=== PATIENT | male | born 1960 | race Two or more races ===

== ENCOUNTER 2020-10-02 15:40 | Outpatient (REF) | payer MEDICARE, SELFPAY | END 2020-10-02 15:41 | disposition home or self-care (01) | LOC: HO.LAB 15:40 | PROVIDERS: Visit Provider Internal Medicine | DX: Z20.822 Contact with and (suspected) exposure to COVID-19 (principal) | CPT/HCPCS: 36415; C9803; U0003; U0005 ==

== ENCOUNTER 2020-10-13 08:52 | Outpatient (REF) | payer MEDICARE, SELFPAY ==
[2020-10-13 11:57] LABS: SARS COV2 PCR INHOUSE NEGATIVE (Negative)
== END 2020-10-13 08:53 | disposition home or self-care (01) ==
LOC: HO.LAB 08:52
PROVIDERS: Visit Provider Internal Medicine
DX: Z20.822 Contact with and (suspected) exposure to COVID-19 (principal)
CPT/HCPCS: C9803; U0003

== ENCOUNTER 2020-10-26 09:15 | Outpatient (REF) | payer MEDICARE, SELFPAY ==
--- NOTE | ~2020-10-26 | XR_ITS ---
EXAMINATION: XR HAND, RIGHT XR HAND, LEFT CLINICAL INFORMATION: Right and left hand pain. COMPARISON: Left hand radiographs dated 04/01/2020. Right hand radiographs dated 07/06/2011. TECHNIQUE: AP, oblique, and lateral views of the right and left hand. FINDINGS: Right hand: No acute fracture or dislocation. Joint space narrowing with marginal osteophytes at the 3rd metacarpophalangeal joint. Tiny marginal osteophytes scattered throughout the distal interphalangeal joints. No osseous erosion. No abnormal soft tissue calcification. Left hand: No acute fracture or dislocation. Mild joint space narrowing with tiny marginal osteophytes at the 3rd and 5th metacarpophalangeal joints. Tiny marginal osteophytes at the distal interphalangeal joints. Redemonstration of a focal erosion at the radial base of the 5th proximal phalanx, slightly more prominent when compared to the prior examination. There is a new focal erosion at the ulnar aspect of the 3rd middle phalangeal head. No abnormal soft tissue calcification. XR/XR hand RT min 3V IMPRESSION: Right hand: Degenerative arthritis at the 3rd metacarpophalangeal joint as well as scattered throughout the distal interphalangeal joints, new when compared to the prior radiographs. Left hand: Mild degenerative arthritis at the 3rd and 5th metacarpophalangeal joints as well as at the distal interphalangeal joints, not significantly changed. Increased prominence of a small erosion at the base of the 5th proximal phalanx. New focal erosion at the 3rd middle phalangeal head.
--- NOTE | ~2020-10-26 | XR_ITS ---
EXAMINATION: XR KNEE, RIGHT XR KNEE, LEFT CLINICAL INFORMATION: Right and left knee pain. COMPARISON: Right and left knee radiographs dated 09/14/2016. TECHNIQUE: AP, tunnel, lateral, and sunrise views of the right and left knee. FINDINGS: Right Knee: Mild medial compartment joint space narrowing. Tiny tricompartmental marginal osteophytes. No osseous erosion. No fracture or dislocation. No abnormal soft tissue calcification. Small joint effusion. Left Knee: Mild medial compartment joint space narrowing. Tiny tricompartmental marginal osteophytes. No osseous erosion. No fracture or dislocation. No abnormal soft tissue calcification. Trace joint effusion. XR/XR knee LT 4V IMPRESSION: RIGHT KNEE: Mild tricompartmental osteoarthritis, minimally progressed when compared to the prior examination. Small joint effusion. LEFT KNEE: Mild tricompartmental osteoarthritis, minimally progressed when compared to the prior examination. Trace joint effusion.
--- NOTE | ~2020-10-26 | XR_ITS ---
EXAMINATION: XR HAND, RIGHT XR HAND, LEFT CLINICAL INFORMATION: Right and left hand pain. COMPARISON: Left hand radiographs dated 04/01/2020. Right hand radiographs dated 07/06/2011. TECHNIQUE: AP, oblique, and lateral views of the right and left hand. FINDINGS: Right hand: No acute fracture or dislocation. Joint space narrowing with marginal osteophytes at the 3rd metacarpophalangeal joint. Tiny marginal osteophytes scattered throughout the distal interphalangeal joints. No osseous erosion. No abnormal soft tissue calcification. Left hand: No acute fracture or dislocation. Mild joint space narrowing with tiny marginal osteophytes at the 3rd and 5th metacarpophalangeal joints. Tiny marginal osteophytes at the distal interphalangeal joints. Redemonstration of a focal erosion at the radial base of the 5th proximal phalanx, slightly more prominent when compared to the prior examination. There is a new focal erosion at the ulnar aspect of the 3rd middle phalangeal head. No abnormal soft tissue calcification. XR/XR hand LT min 3V IMPRESSION: Right hand: Degenerative arthritis at the 3rd metacarpophalangeal joint as well as scattered throughout the distal interphalangeal joints, new when compared to the prior radiographs. Left hand: Mild degenerative arthritis at the 3rd and 5th metacarpophalangeal joints as well as at the distal interphalangeal joints, not significantly changed. Increased prominence of a small erosion at the base of the 5th proximal phalanx. New focal erosion at the 3rd middle phalangeal head.
--- NOTE | ~2020-10-26 | XR_ITS ---
EXAMINATION: XR KNEE, RIGHT XR KNEE, LEFT CLINICAL INFORMATION: Right and left knee pain. COMPARISON: Right and left knee radiographs dated 09/14/2016. TECHNIQUE: AP, tunnel, lateral, and sunrise views of the right and left knee. FINDINGS: Right Knee: Mild medial compartment joint space narrowing. Tiny tricompartmental marginal osteophytes. No osseous erosion. No fracture or dislocation. No abnormal soft tissue calcification. Small joint effusion. Left Knee: Mild medial compartment joint space narrowing. Tiny tricompartmental marginal osteophytes. No osseous erosion. No fracture or dislocation. No abnormal soft tissue calcification. Trace joint effusion. XR/XR knee RT 4V IMPRESSION: RIGHT KNEE: Mild tricompartmental osteoarthritis, minimally progressed when compared to the prior examination. Small joint effusion. LEFT KNEE: Mild tricompartmental osteoarthritis, minimally progressed when compared to the prior examination. Trace joint effusion.
== END 2020-10-26 09:16 | disposition home or self-care (01) ==
LOC: HO.XRAY 09:15
PROVIDERS: PCP Nurse Practitioner Primary Care; Visit Provider Nurse Practitioner Primary Care
DX: M25.561 Pain in right knee (principal); M25.562 Pain in left knee; M79.641 Pain in right hand; M79.642 Pain in left hand
CPT/HCPCS: 73130; 73564

== ENCOUNTER 2021-03-09 07:01 | Outpatient (REF) | payer MEDICARE, SELFPAY ==
[2021-03-09 08:31] LABS: PSA,Total (Free>4and<10) 10.03 ng/mL (0.00-4.00)
== END 2021-03-09 07:02 | disposition home or self-care (01) ==
LOC: HO.LAB 07:01
PROVIDERS: PCP Nurse Practitioner Primary Care
DX: Z12.5 Encounter for screening for malignant neoplasm of prostate (principal); N40.1 Benign prostatic hyperplasia with lower urinary tract symptoms
CPT/HCPCS: 36415; 84153

== ENCOUNTER 2021-03-10 10:59 | Outpatient (REF) | payer MEDICARE, SELFPAY | END 2021-03-10 11:00 | disposition home or self-care (01) | LOC: HO.LAB 10:59 | PROVIDERS: PCP Nurse Practitioner Primary Care; Visit Provider Internal Medicine | DX: M54.9 Dorsalgia, unspecified (principal); R78.81 Bacteremia; R97.20 Elevated prostate specific antigen [PSA] | CPT/HCPCS: 87040; 99202 ==

== ENCOUNTER → 2021-03-18 13:23 | Outpatient (BNVA) | payer MEDICARE, SELFPAY | PROVIDERS: PCP Nurse Practitioner Primary Care; Visit Provider Urology | DX: N40.1 Benign prostatic hyperplasia with lower urinary tract symptoms (principal); R97.20 Elevated prostate specific antigen [PSA] | CPT/HCPCS: 99212 ==

== ENCOUNTER 2021-05-10 11:36 | Outpatient (REF) | payer MEDICARE, SELFPAY ==
[2021-05-10 13:37] LABS: PSA,Total (Free>4and<10) 3.48 ng/mL (0.00-4.00)
== END 2021-05-10 11:37 | disposition home or self-care (01) ==
LOC: HO.LAB 11:36
PROVIDERS: PCP Nurse Practitioner Primary Care; Visit Provider Urology
DX: Z12.5 Encounter for screening for malignant neoplasm of prostate (principal); N40.1 Benign prostatic hyperplasia with lower urinary tract symptoms
CPT/HCPCS: 36415; 84153

== ENCOUNTER → 2021-05-20 09:51 | Outpatient (BNVA) | payer MEDICARE, SELFPAY | PROVIDERS: PCP Nurse Practitioner Primary Care; Visit Provider Urology | CPT/HCPCS: Q3014 ==

== ENCOUNTER 2021-09-14 08:20 | Outpatient (REF) | payer MEDICARE, SELFPAY ==
[2021-09-14 09:40] LABS: PSA,Total (Free>4and<10) 3.85 ng/mL (0.00-4.00)
== END 2021-09-14 08:21 | disposition home or self-care (01) ==
LOC: HO.LAB 08:20
PROVIDERS: PCP Nurse Practitioner Primary Care; Visit Provider Urology
DX: N40.1 Benign prostatic hyperplasia with lower urinary tract symptoms (principal); N13.8 Other obstructive and reflux uropathy; Z12.5 Encounter for screening for malignant neoplasm of prostate
CPT/HCPCS: 36415; 84153

== ENCOUNTER → 2021-09-16 10:39 | Outpatient (BNVA) | payer MEDICARE, SELFPAY | PROVIDERS: PCP Nurse Practitioner Primary Care; Visit Provider Urology | DX: N40.1 Benign prostatic hyperplasia with lower urinary tract symptoms (principal); N13.8 Other obstructive and reflux uropathy; R33.9 Retention of urine, unspecified; R97.20 Elevated prostate specific antigen [PSA] | CPT/HCPCS: Q3014 ==

== ENCOUNTER 2021-12-21 09:43 | Outpatient (REF) | payer MEDICARE, SELFPAY ==
[2021-12-21 11:51] LABS: Appearance Urine CLEAR; Color Urine YELLOW; Glucose Urine UA NEG (NEG); Leukocyte Esterase Urine NEG (NEG); Nitrite Urine NEG (NEG); PH 7.5 (5.0-8.0); Specific Gravity - Urine 1.015 (1.005-1.025); Urine Blood NEG (NEG); Urine Ketones NEG (NEG); Urine Protein NEG (NEG-TRACE)
[2021-12-21 12:03] LABS: RBC Urine 0 /HPF (0); WBC Urine 0 /HPF (0-4)
== END 2021-12-21 09:44 | disposition home or self-care (01) ==
LOC: HO.LAB 09:43
PROVIDERS: PCP Nurse Practitioner Primary Care; Visit Provider Urology
DX: N40.1 Benign prostatic hyperplasia with lower urinary tract symptoms (principal)
CPT/HCPCS: 81001; 87086

== ENCOUNTER 2022-02-11 07:47 | Outpatient (REF) | payer MEDICARE, SELFPAY ==
--- NOTE | ~2022-02-11 | XR_ITS ---
EXAMINATION: BILATERAL SHOULDER X-RAY CLINICAL INFORMATION: Pain COMPARISON: Previous right shoulder x-ray September 2016 and left shoulder x-ray November 2011 TECHNIQUE: 3 views of each shoulder FINDINGS: Right: No fracture or dislocation is seen. The right acromioclavicular joint is widened measuring 1.1 cm. This is similar to September 2016 exam and may represent postsurgical changes. The glenohumeral joint is normal. Soft tissues are normal. Left: Bone alignment is normal. No fracture or dislocation is seen. There is mild arthritis at the left acromioclavicular joint. The glenohumeral joint is normal. Soft tissues are normal. XR/XR shoulder RT min 2V IMPRESSION: Right: Widened right acromioclavicular joint similar to 2016 exam which may represent post surgical changes. Left: Mild arthritis at the left acromioclavicular joint.
--- NOTE | ~2022-02-11 | XR_ITS ---
EXAMINATION: BILATERAL SHOULDER X-RAY CLINICAL INFORMATION: Pain COMPARISON: Previous right shoulder x-ray September 2016 and left shoulder x-ray November 2011 TECHNIQUE: 3 views of each shoulder FINDINGS: Right: No fracture or dislocation is seen. The right acromioclavicular joint is widened measuring 1.1 cm. This is similar to September 2016 exam and may represent postsurgical changes. The glenohumeral joint is normal. Soft tissues are normal. Left: Bone alignment is normal. No fracture or dislocation is seen. There is mild arthritis at the left acromioclavicular joint. The glenohumeral joint is normal. Soft tissues are normal. XR/XR shoulder LT min 2V IMPRESSION: Right: Widened right acromioclavicular joint similar to 2016 exam which may represent post surgical changes. Left: Mild arthritis at the left acromioclavicular joint.
== END 2022-02-11 07:48 | disposition home or self-care (01) ==
LOC: HO.HOSX 07:47
PROVIDERS: Visit Provider Physician Assistant
DX: M25.511 Pain in right shoulder (principal); M25.512 Pain in left shoulder
CPT/HCPCS: 20610; 73030; 99202; J1040

== ENCOUNTER 2022-03-22 09:23 | Outpatient (REF) | payer MEDICARE, SELFPAY | END 2022-03-22 09:24 | disposition home or self-care (01) | LOC: HO.LAB 09:23 | PROVIDERS: Visit Provider Urology | DX: N40.1 Benign prostatic hyperplasia with lower urinary tract symptoms (principal); N13.8 Other obstructive and reflux uropathy; Z12.5 Encounter for screening for malignant neoplasm of prostate | CPT/HCPCS: 36415; 84153 ==

== ENCOUNTER → 2022-03-29 11:17 | Outpatient (BNVA) | payer MEDICARE, SELFPAY | PROVIDERS: PCP Nurse Practitioner Primary Care; Visit Provider Urology | DX: N40.1 Benign prostatic hyperplasia with lower urinary tract symptoms (principal); N13.8 Other obstructive and reflux uropathy; R33.8 Other retention of urine; R97.20 Elevated prostate specific antigen [PSA]; Z79.899 Other long term (current) drug therapy | CPT/HCPCS: 51798; 99212 ==

== ENCOUNTER 2022-05-20 12:04 | Outpatient (REF) | payer MEDICARE, SELFPAY ==
--- NOTE | ~2022-05-20 | XR_ITS ---
EXAMINATION: XR CHEST CLINICAL INFORMATION: Positive TB test COMPARISON: Previous chest x-ray October 2007 TECHNIQUE: 2 views of the chest were obtained. FINDINGS: No significant abnormality is noted involving the heart, lungs, mediastinum, bony thorax or soft tissues. There are degenerative changes of the spine. XR/XR chest 2V IMPRESSION: No evidence of TB in the chest.
== END 2022-05-20 12:05 | disposition home or self-care (01) ==
LOC: HO.XRAY 12:04
PROVIDERS: PCP Nurse Practitioner Primary Care; Visit Provider Nurse Practitioner Primary Care
DX: R76.12 Nonspecific reaction to cell mediated immunity measurement of gamma interferon antigen response without active tuberculosis (principal); Z86.15 Personal history of latent tuberculosis infection
CPT/HCPCS: 71046

== ENCOUNTER → 2022-05-27 11:06 | Outpatient (BNVA) | payer MEDICARE, SELFPAY | PROVIDERS: PCP Nurse Practitioner Primary Care; Referring Provider Nurse Practitioner Primary Care; Visit Provider Nurse Practitioner | DX: Z01.818 Encounter for other preprocedural examination (principal) | CPT/HCPCS: 99202 ==

== ENCOUNTER 2022-07-26 08:46 | Outpatient (REF) | payer MEDICARE, SELFPAY ==
[2022-07-26 10:26] LABS: PSA,Total (Free>4and<10) 2.83 ng/mL (0.00-4.00)
== END 2022-07-26 08:47 | disposition home or self-care (01) ==
LOC: HO.LAB 08:46
PROVIDERS: PCP Nurse Practitioner Primary Care; Visit Provider Urology
DX: N40.1 Benign prostatic hyperplasia with lower urinary tract symptoms (principal); Z12.5 Encounter for screening for malignant neoplasm of prostate
CPT/HCPCS: 36415; 84153

== ENCOUNTER 2022-08-02 15:55 | Outpatient (REF) | payer MEDICARE, SELFPAY | END 2022-08-02 15:56 | disposition home or self-care (01) | LOC: HO.US 15:55 | PROVIDERS: PCP Nurse Practitioner Primary Care; Visit Provider Urology | DX: Z13.89 Encounter for screening for other disorder (principal) ==

== ENCOUNTER 2022-08-30 11:04 | Outpatient (REF) | payer MEDICARE, SELFPAY ==
--- NOTE | ~2022-08-30 | US_ITS ---
EXAMINATION: US PELVIS LIMITED (BLADDER) CLINICAL INFORMATION: Benign prostatic hyperplasia with lower urinary tract symptoms. COMPARISON: CT abdomen and pelvis 05/23/2019. TECHNIQUE: Real-time imaging of the bladder. FINDINGS: BLADDER: Well distended and normal. Bilateral ureteral jets are demonstrated. Prevoid bladder volume is 304 mL. Postvoid bladder volume is 13.7 mL. Slightly enlarged prostate, volume 29.9 mL. US/US bladder IMPRESSION: Normal bladder ultrasound. No post void residual. Slightly enlarged prostate gland.
== END 2022-08-30 11:05 | disposition home or self-care (01) ==
LOC: HO.US 11:04
PROVIDERS: Visit Provider Urology
DX: N40.1 Benign prostatic hyperplasia with lower urinary tract symptoms (principal)
CPT/HCPCS: 76857

== ENCOUNTER → 2022-09-30 08:42 | Outpatient (BNVA) | payer MEDICARE, SELFPAY | PROVIDERS: PCP Nurse Practitioner Primary Care; Visit Provider Urology | DX: N40.1 Benign prostatic hyperplasia with lower urinary tract symptoms (principal); N13.8 Other obstructive and reflux uropathy; R35.1 Nocturia; N39.41 Urge incontinence; Z79.899 Other long term (current) drug therapy | CPT/HCPCS: 51798; 99212 ==

== ENCOUNTER 2023-07-04 08:53 | Outpatient (REF) | payer MEDICARE, SELFPAY ==
[2023-07-04 11:51] LABS: Cholesterol 195 mg/dL (<200); HDL Cholesterol 50 mg/dL (>40); LDL Cholesterol Calculated 134 mg/dL (<100); Triglycerides 57 mg/dL (<150)
[2023-07-04 12:00] LABS: Alanine Aminotransferase 26 U/L (0-40); Albumin Level 4.1 g/dL (3.5-5.0); Alkaline Phosphatase 76 U/L (39-117); Anion Gap 12 (12-20); Aspartate Amino Transferase 26 U/L (5-37); Bilirubin Direct < 0.2 mg/dL (0.0-0.5); Bilirubin Total 0.2 mg/dL (0.0-1.0); Blood Urea Nitrogen 17 mg/dL (9-16); Calcium 9.4 mg/dL (8.4-10.2); Carbon Dioxide 27 mmol/L (22-29); Chloride 107 mmol/L (96-108); Estimated Glomerular Filt Rate > 60; Glucose Random 99 mg/dL (60-115); Potassium 4.1 mmol/L (3.3-5.1); Sodium 142 mmol/L (135-145); Total Protein 7.6 g/dL (6.5-8.0)
[2023-07-04 12:35] LABS: Folate 12.5 ng/mL (> or = 4.0); Vitamin B12 < 148 pg/mL (200-900)
[2023-07-04 13:24] LABS: TSH reflex Free T4 2.06 uIU/mL (0.32-4.0)
[2023-07-04 14:07] LABS: Reflex LDLD? No
== END 2023-07-04 08:54 | disposition home or self-care (01) ==
LOC: HO.HHCL 08:53
PROVIDERS: Visit Provider Internal Medicine
DX: E78.2 Mixed hyperlipidemia (principal); F32.A Depression, unspecified
CPT/HCPCS: 36415; 80048; 80061; 80076; 82607; 82746; 84443

== ENCOUNTER 2023-07-21 09:00 | Outpatient (REF) | payer MEDICARE, SELFPAY | END 2023-07-21 09:01 | disposition home or self-care (01) | LOC: HO.HHCX 09:00 | PROVIDERS: Visit Provider Physical Medicine & Rehabilitation | DX: M54.12 Radiculopathy, cervical region (principal); M12.9 Arthropathy, unspecified | CPT/HCPCS: 72050 ==

== ENCOUNTER 2023-08-23 09:14 | Outpatient (REF) | payer MEDICARE, SELFPAY ==
[2023-08-23 11:18] LABS: PSA,Total (Free>4and<10) 2.93 ng/mL (0.00-4.00)
== END 2023-08-23 09:15 | disposition home or self-care (01) ==
LOC: HO.LAB 09:14
PROVIDERS: PCP Nurse Practitioner Primary Care; Visit Provider Urology
DX: Z12.5 Encounter for screening for malignant neoplasm of prostate (principal); R97.20 Elevated prostate specific antigen [PSA]
CPT/HCPCS: 36415; 84153

== ENCOUNTER 2023-08-29 07:59 | Day surgery (SDC) | payer MEDICARE, SELFPAY ==
[2023-08-25 14:04] VITALS: BMI 24.5
--- NOTE | 2023-08-28 12:02 | P.CONAN_ITS ---
Documented by User: Supriya Friedman NP 08/28/23 12:02 HPI - Anesthesia Eval Consult details Narrative: 63yo F for Colonoscopy PMFSH Active Problems Active Problems: All Active Problems (Updated 05/30/22 @ 16:36 by HANSEL Abad) Pre-op examination (Acute) Chronic knee pain (Acute) Depression with anxiety (Acute) Cervical radiculopathy due to degenerative joint disease of spine (Acute) High cholesterol (Acute) Tendonitis of both shoulders (Acute) Painful arc syndrome of right shoulder (Acute) Painful arc syndrome of left shoulder (Acute) Nocturia more than twice per night (Acute) Back pain (Acute) Bacteremia (Acute) Elevated prostate specific antigen [PSA] (Acute) Urge incontinence (Acute) Benign prostatic hyperplasia with lower urinary tract symptoms (Acute) Past Medical History Medical History Arthritis Depression Back pain Bacteremia Elevated prostate specific antigen [PSA] Urge incontinence Benign prostatic hyperplasia with lower urinary tract symptoms Family History Family History Mother Esophagus cancer Sister Breast cancer Surgical History Surgical History S/P LASIK surgery H/O colonoscopy H/O prostate biopsy H/O shoulder surgery Social History Social History Alcohol intake: current Alcohol intake frequency: holidays/special occasions only Patient Tobacco Use Status: Former Tobacco user Quit Date: 30 yrs ago Use of substances other than those prescribed or required for medical reasons: No Are you DNR?: No Advance Directives: No Advance Directives Information Provided: Yes Current occupational status: disabled Current occupation: rt hand Meds Allergies Allergy/AdvReac Type Severity Reaction Status Date / Time No Known Allergies Allergy Verified 08/29/23 08:10 Home Medications Medication Instructions Recorded Confirmed Last Taken Type bupropion HCl 300 mg 24 hr tablet, 300 mg PO QAM 02/11/22 08/29/23 Unknown History extended release vitamin B complex (B 1 tab PO DAILY 05/27/22 08/29/23 Unknown History Complex-Vitamin B12 tablet) Exam Height,Weight and Vital Signs: Height 5 ft 5 in Weight 66.678 kg Pertinent Lab Results Pertinent Lab Results: Laboratory Tests 05/23/19 07/04/23 08:15 08:57 WBC 4.4 L Hgb 14.7 Hct 43.0 Plt Count 224 Sodium 142 Potassium 4.1 Chloride 107 Carbon Dioxide 27 BUN 17 H Creatinine 0.97 Assessment and Plan Assessment Anesthesia Assessment: Chart Reviewed Documented by User: Chula Fields MD 08/29/23 09:06 [facility] Active Problems Active Problems: All Active Problems (Updated 08/29/23 @ 08:21 by Chula Fields MD) Pre-op examination (Acute) Chronic knee pain (Acute) Depression with anxiety (Acute) Cervical radiculopathy due to degenerative joint disease of spine (Acute) High cholesterol (Acute) Tendonitis of both shoulders (Acute) Painful arc syndrome of right shoulder (Acute) Painful arc syndrome of left shoulder (Acute) Nocturia more than twice per night (Acute) Back pain (Acute) Bacteremia (Acute) Elevated prostate specific antigen [PSA] (Acute) Urge incontinence (Acute) Benign prostatic hyperplasia with lower urinary tract symptoms (Acute) Past Medical History Medical History Arthritis Depression Back pain Bacteremia Elevated prostate specific antigen [PSA] Urge incontinence Benign prostatic hyperplasia with lower urinary tract symptoms Family History Family History Mother Esophagus cancer Sister Breast cancer Family history of problems with anesthesia: No Surgical History Surgical History S/P LASIK surgery H/O colonoscopy H/O prostate biopsy H/O shoulder surgery History of Problems with Anesthesia: No Social History Social History Alcohol intake: current Alcohol intake frequency: holidays/special occasions only Patient Tobacco Use Status: Former Tobacco user Quit Date: 30 yrs ago Use of substances other than those prescribed or required for medical reasons: No Are you DNR?: No Advance Directives: No Advance Directives Information Provided: Yes Current occupational status: disabled Current occupation: rt hand Meds Allergies Allergy/AdvReac Type Severity Reaction Status Date / Time No Known Allergies Allergy Verified 08/29/23 08:10 Home Medications Medication Instructions Recorded Confirmed Last Taken Type bupropion HCl 300 mg 24 hr tablet, 300 mg PO QAM 02/11/22 08/29/23 Unknown History extended release vitamin B complex (B 1 tab PO DAILY 05/27/22 08/29/23 Unknown History Complex-Vitamin B12 tablet) Exam Height,Weight and Vital Signs: Height 5 ft 5 in Weight 66.678 kg Vital Signs Temp Pulse Resp BP Pulse Ox O2 Del Method 08/29/23 08:34 96.8 F 54 15 121/72 97 Room Air Pertinent Lab Results Pertinent Lab Results: Laboratory Tests 05/23/19 07/04/23 08:15 08:57 WBC 4.4 L Hgb 14.7 Hct 43.0 Plt Count 224 Sodium 142 Potassium 4.1 Chloride 107 Carbon Dioxide 27 BUN 17 H Creatinine 0.97 Airway Mallampati Class: II TM Dist: >3cm Neck ROM: Full Loose/Missing/Broken Teeth: Yes (1 broken bottom front. Missing 1 back bottom R and L. Denies loose teeth) Heart: RRR Lungs: CTAB Assessment and Plan Assessment Anesthesia Assessment: Anesthesia Plan Discussed and Chart Reviewed Final Anesthetic Review Family History of Problems with Anesthesia: No History of Problems with Anesthesia: No NPO: Yes ASA Class: II Final Preanesthetic Review: No Changes in Pt Med Stat, Meds/Allgs Chart Reviewed, Consent Obtained/Reviewed and Anes Risks/Benef Reviewed Patient Risk: Low Procedure Risk: Low Assessment/Block/Sedation in SS: Assess/Block/Sedation-SS Anesthetic Plan Anesthetic Plan: TIVA Disposition: Standard PACU
[2023-08-29 08:12] VITALS: BMI 25.0
--- NOTE | 2023-08-29 08:25 | P.HPSUR_ITS ---
Pre-Procedural Eval Section A - 24 Hr Update-Section A only Date of Service: 08/29/23 Section B - Complete if H&P > 30 days Chief Complaint: Encounter for screening for malignant neoplasm of Relevant Family History (Specify if Yes): No Relevant Social History: None Present Medications: see Short Stay Collaborative assessment Medical History: Significant History (Arthritis Depression Back pain Bacteremia Elevated prostate specific antigen [PSA] Urge incontinence Benign prostatic hyperplasia with lower urinary tract symptoms) History of Previous Operations: Relevant previous surgery/procedure and date(s) (S/P LASIK surgery H/O colonoscopy H/O prostate biopsy H/O shoulder surgery) Allergies: Allergies Allergy/AdvReac Type Severity Reaction Status Date / Time No Known Allergies Allergy Verified 08/29/23 08:10 Review of Systems Sugical H&P ROS: Negative: Constitution, Cardiovascular, Respiratory, Neurological, Psychiatric, Hem-Onc, Allergic/Immunologic, Gastrointestinal, Genitourinary, Musculoskeletal, Integumentary, Endocrine and Eyes/Ears/Nose/Th roat Exam Surgical H&P Exam: Normal: HEENT, Normal: Heart, Normal: Lungs, Normal: Extremities, Normal: Abdomen, Normal: Skin and Normal: Neurological Plan Diagnosis/Plan: Unchanged I have reviewed the history and physical and performed a pertinent physical examination on my patient. No changes have occurred unless specified. Time Spent With Patient Time: Total time managing care of this patient today ____ minutes.
--- NOTE | 2023-08-29 08:26 | P.OP_ITS ---
Operative Note Operative Note Date of Service: 08/29/23 Narrative: Operative Information Procedure Description: Colonoscopy Indication: screening Anesthesia: MAC COLONOSCOPY Instrument: Olympus variable stiffness pediatric scope 190L Colonoscopy Monitoring: Vital signs and clinical assessment, continuous EKG monitoring, Pulse oximetry, Carbon Dioxide monitoring and blood pressure monitoring were done throughout the procedure. Colon withdrawal time was 6 minutes. Procedure: The patient was placed in the left lateral decubitis position and pre-procedure medications were administered. After a digital rectal examination of the ano-rectum, the video colonoscope was inserted into the rectum and advanced through the colon to the cecum/TI. The colonoscope was slowly withdrawn in a retrograde panoramic fashion and the colon mucosa was carefully examined including a retroflexed view of the rectum. Findings and interventions are described below. Procedure Difficulty: easy Findings: Terminal Ileum-normal Cecum:normal Right sided retroflexion--normal Ascending Colon: normal Transverse Colon -normal Descending Colon:normal Sigmoid Colon: mild diverticulosis Rectum: Retroflexion with medium sized internal hemorrhoids, grade I Anorectum - normal Colon preparation: [place] Bowel Preparation Scale Right colon; 3 Transverse colon: 3 Left colon; 3 (0 = Unprepared colon segment with mucosa not seen due to solid stool that cannot be cleared. 1 = Portion of mucosa of the colon segment seen, but other areas of the colon segment not well seen due to staining, residual stool and/or opaque liquid. 2 = Minor amount of residual staining, small fragments of stool and/or opaque liquid, but mucosa of colon segment seen well. 3 = Entire mucosa of colon segment seen well with no residual staining, small fragments of stool or opaque liquid) Impression and Post Procedure Diagnosis: internal hemorrhoids diverticular disease Plan: High fiber diet leaflet Avoid straining at stool, epsom salts and sitz bath, anusol supps or cream Repeat Colonoscopy in 10 years or earlier if clinically indicated Above findings were reviewed with the patient and relevant handouts were provided if indicated.
[2023-08-29 08:34] VITALS: BP 121/72; PULSE 54; RESP 15; TEMP 36; O2SAT 97
[2023-08-29] MEDS: Lactated Ringers 1,000 ML 100 ML IVCONT (08:43)
[2023-08-29 09:18] VITALS: BP 97/59; PULSE 59; RESP 18; TEMP 36.4; O2SAT 97
[2023-08-29 09:33] VITALS: BP 117/70; PULSE 62; RESP 18; TEMP 36.4; O2SAT 97
== END 2023-08-29 10:02 | disposition home or self-care (01) ==
PROVIDERS: Visit Provider Internal Medicine Gastroenterology
PROC: 0DJD8ZZ Inspection of Lower Intestinal Tract, Via Natural or Artificial Opening Endoscopic (ICD-10-PCS; CPT 45378; principal; 2023-08-29 10:10)
DX: Z12.11 Encounter for screening for malignant neoplasm of colon (principal); K57.30 Diverticulosis of large intestine without perforation or abscess without bleeding; K64.0 First degree hemorrhoids; E78.00 Pure hypercholesterolemia, unspecified; Z79.02 Long term (current) use of antithrombotics/antiplatelets; Z79.899 Other long term (current) drug therapy
CPT/HCPCS: G0121; J2704

== ENCOUNTER → 2023-08-29 07:59 | Outpatient (BNV) | payer MEDICARE, SELFPAY | PROVIDERS: Visit Provider Internal Medicine Gastroenterology | DX: Z12.11 Encounter for screening for malignant neoplasm of colon (principal); K57.30 Diverticulosis of large intestine without perforation or abscess without bleeding; K64.0 First degree hemorrhoids | CPT/HCPCS: G0121 ==

== ENCOUNTER 2023-09-12 11:22 | Outpatient (AMB) | payer MEDICARE, SELFPAY ==
[2023-09-12 11:27] VITALS: BP 124/85; PULSE 54; BMI 25.0
--- NOTE | 2023-09-12 11:27 | MHC.OFFVIS ---
Intake Vital Signs 09/12/23 11:27 Height 5 ft 5 in Weight 150 lb 0.005 oz BMI 25.0 BP 124/85 Blood Pressure Location Lt brachial Position Sitting Pulse 54 Intake Visit Reasons: s/p colon Intake Note: Patient presents for a post-op follow-up status post colonoscopy. Pt c/o; reports feeling sensation to have a bm but when goes to the bathroom nothing comes out. Tile Machine Operator Required: Yes Tile Machine Operator Language: Estonian Information Interpreted: non-clinical & clinical Accompanied by: Self / Same As Patient Allergies No Known Allergies Allergy (Verified 09/12/23 11:32) HPI s/p colon HPI Details Assessment & Plan (1) Pre-op examination: Code(s): Z01.818 - Encounter for other preprocedural examination Plan: Estonian #female family member translates #[id number] He had a scope in 2011 that was negative and it was here. He denies bowel or upper GI problems There are no prior problems with anesthesia or sedation. He denies any cardiac or respiratory problems. No ID problems. There is no known FHX crc or polyps Medications: New peg 3350-electroly tracey 236-22.74-6.74 -5.86 gram (Golyt tanya) until feca l effluent is roly r; do not exceed a total volume of 2 ,000 mL 240 mL PO Q10M 1 day 4,000 mL 0RF Z12.11 - Encounter for screening for malignant neoplas m of colon COLONOSCOPY 08/29/23 Findings: Terminal Ileum-normal Cecum:normal Right sided retroflexion--normal Ascending Colon: normal Transverse Colon -normal Descending Colon:normal Sigmoid Colon: mild diverticulosis Rectum: Retroflexion with medium sized internal hemorrhoids, grade I Anorectum - normal Impression and Post Procedure Diagnosis: internal hemorrhoids diverticular disease Plan: High fiber diet leaflet Avoid straining at stool, epsom salts and sitz bath, anusol supps or cream Repeat Colonoscopy in 10 years or earlier if clinically indicated TODAY'S VISIT Estonian #Mercedes FRANKLIN He is agreeable to a 10 year follow up. He had had some trouble re establishing his BM's after the prep. We discuss adding fiber to his diet. He does eat oatmeal and a lot of fibrous veggies, so I recommend a fiber supplement. The procedure was well tolerated. The results were explained and the patient is agreeable to the follow-up interval as stated. Educated that they will be put on a recall list when it is time for their repeat scope but should they move out of state or away from the hospital they will need to remember along with their primary to repeat the procedure in a timely fashion to avoid any adverse complications. PRN [facility] Medical History Arthritis Depression Back pain Bacteremia Elevated prostate specific antigen [PSA] Urge incontinence Benign prostatic hyperplasia with lower urinary tract symptoms Surgical History (Updated 09/12/23 @ 12:05 by HANSEL Abad) S/P LASIK surgery H/O colonoscopy H/O prostate biopsy H/O shoulder surgery Family History Mother Esophagus cancer Sister Breast cancer Social History Alcohol intake: current Alcohol intake frequency: holidays/special occasions only Patient Tobacco Use Status: Former Tobacco user Quit Date: 30 yrs ago Current occupational status: disabled Current occupation: rt hand Review of Systems Const Denies fatigue, Denies fever(s), Denies night sweats, Denies poor appetite and Denies weight loss ENT Reports Normal hearing present, Denies dental pain, Denies dysphagia, Denies hearing loss, Denies mouth pain, Denies odynophagia, Denies throat swelling, Denies tongue swelling and Reports other (Dentition adequate) Card Reports no additional complaints Resp Reports no additional complaints GI Details: Denies abdominal pain, Denies melena, Denies bloating, Denies hematochezia, Reports constipation, Denies GI cramping, Denies dysphagia, Denies excessive flatus, Denies early satiety, Denies heartburn, Denies diarrhea, Denies nausea, Denies odynophagia, Denies vomiting and Denies hematemesis Skin/Breast Denies pruritus, Denies lesions, Denies rash and Denies jaundice Neuro Reports Normal hearing present and Denies Abnormal speech present Endo Denies fatigue Aller/Immun Denies throat swelling and Denies tongue swelling Physical Exam Vital Signs: Last Vital Signs Pulse 54 09/12/23 11:27 BP 124/85 09/12/23 11:27 BMI result Body Mass Index 25.0 Const General: cooperative, no acute distress, well developed and well groomed Nutritional Appearance: average body habitus and well nourished Orientation/consciousness: oriented to person, oriented to place and oriented to time Limitations: language barrier HEENT Head: Yes normocephalic and Yes atraumatic Eyes General: appearance normal, both eyes and all related structures Pupils: Equal, round and reactive pupils present Neck Neck: Yes normal visual inspection and Yes no lymphadenopathy Thyroid: Thyroid normal Resp Effort & Inspection: normal respiratory effort and able to speak in complete sentences Auscultation: clear to auscultation bilaterally Cardio Rate: regular rate Rhythm: regular rhythm Heart sounds: Normal, physiologic split S2 sound present Peripheral pulses: radial pulses present and posterior tibial pulses present GI Inspection: No distended and No Abdominal panniculus present Palpation (GI): Soft to palpation, nontender, no guarding, not rigid and No hepatosplenomegaly present Percussion: Yes normal to percussion Auscultation: normal bowel sounds Rectal Exam - Male: Yes deferred Skin General skin exam: no rashes or lesions noted, turgor normal, skin not dry, no jaundice, No spider nevi and no striae Rashes: no rashes Nails: normal Neuro General: oriented to person, oriented to place and oriented to time Cranial nerves: Yes Equal, round and reactive pupils present and Yes Normal hearing present Speech: No Abnormal speech present Extrem General: Yes normal to inspection, No clubbing, No cyanosis and No edema Psych Appearance: grossly normal and well kempt Mental Status: mental status grossly normal Speech and movement: Normal speech and movement present Affect: normal affect Attitude: cooperative Thought process: Normal thought process present and not confabulating Thought content: Normal thought content present Insight: Limited insight present (Psych) Judgement: Limited judgement present (Psych) Assessment & Plan Assessment & Plan (1) H/O colonoscopy: Comment: 2023 equals negative study repeat in 10 years 2011 Code(s): Z98.890 - Other specified postprocedural states Plan Estonian #Mercedes LIVE He is agreeable to a 10 year follow up. He had had some trouble re establishing his BM's after the prep. We discuss adding fiber to his diet. He does eat oatmeal and a lot of fibrous veggies, so I recommend a fiber supplement. The procedure was well tolerated. The results were explained and the patient is agreeable to the follow-up interval as stated. Educated that they will be put on a recall list when it is time for their repeat scope but should they move out of state or away from the hospital they will need to remember along with their primary to repeat the procedure in a timely fashion to avoid any adverse complications. PRN Coding Level of Care Code Est Pt Level 3 (95136) Diagnoses H/O colonoscopy Z98.890
== END 2023-09-12 12:00 | disposition home or self-care (01) ==
PROVIDERS: PCP Nurse Practitioner Primary Care; Visit Provider Nurse Practitioner
DX: Z98.890 Other specified postprocedural states (principal)
CPT/HCPCS: 99213

== ENCOUNTER → 2023-09-12 11:22 | Outpatient (BNVA) | payer MEDICARE, SELFPAY | PROVIDERS: PCP Nurse Practitioner Primary Care; Visit Provider Nurse Practitioner | DX: Z98.890 Other specified postprocedural states (principal) | CPT/HCPCS: 99212 ==

== ENCOUNTER 2024-03-20 08:09 | Outpatient (REF) | payer MEDICARE, SELFPAY ==
[2024-03-20 11:43] LABS: Alanine Aminotransferase 32 U/L (0-40); Albumin Level 4.2 g/dL (3.5-5.0); Alkaline Phosphatase 67 U/L (39-117); Aspartate Amino Transferase 26 U/L (5-37); Bilirubin Direct 0.2 mg/dL (0.0-0.5); Bilirubin Total 0.4 mg/dL (0.0-1.0); Cholesterol 208 mg/dL (<200); HDL Cholesterol 55 mg/dL (>40); LDL Cholesterol Calculated 135 mg/dL (<100); Total Protein 7.8 g/dL (6.5-8.0); Triglycerides 91 mg/dL (<150)
[2024-03-20 12:10] LABS: Folate 12.5 ng/mL (> or = 4.0); Vitamin B12 294 pg/mL (200-900)
== END 2024-03-20 08:10 | disposition home or self-care (01) ==
LOC: HO.HHCL 08:09
PROVIDERS: Visit Provider Nurse Practitioner Primary Care
DX: E78.2 Mixed hyperlipidemia (principal); E53.8 Deficiency of other specified B group vitamins
CPT/HCPCS: 36415; 80061; 80076; 82607; 82746

== ENCOUNTER 2024-10-22 08:25 | Outpatient (REF) | payer MEDICARE, SELFPAY ==
[2024-10-22 08:35] LABS: MANUAL DIFF FLAG NO
--- OUTSIDE RECORDS SUMMARY | 2024-10-22 08:46 | XMS_ITS | Encounter Summary ---
Author Organization [facility] Address [address] [place] [address] [address] [place] [address] Care Team Providers Care Deer Farmer Name Role Phone Perla Golden Primary Care Provider [phone] Encounter Details Date Type Department Care Team (Latest Contact Info) Description 09/18/2020 Abstract [facility] CONVERSIONS Dental, Provider, DDS Social History Tobacco Use Types Packs/Day Years Used Date Smoking Tobacco: Never Assessed Sex and Gender Information Value Date Recorded Sex Assigned at Male 05/16/2022 10:17 AM EDT Legal Sex Male 10:17 AM EDT Gender Identity Male 05/16/2022 10:17 AM EDT Sexual Orientation Straight 05/16/2022 10 :17 AM EDT documented as of this encounter Plan of Treatment Not on file documented as of this encounter Visit Diagnoses Not on filedocumented in this encounter Care Teams Deer Farmer Relationship Specialty Start Date End Date Perla Golden ANP [address] [place] [address] PCP - General Family Medicine 12/03/19 documented as of this encounter
--- OUTSIDE RECORDS SUMMARY | 2024-10-22 08:46 | XMS_ITS | Encounter Summary ---
Author Organization [facility] Address [address] [facility] [address] [place] [address] Care Team Providers Care Shirt Folding Machine Operator Name Role Phone Perla Golden Primary Care Provider [phone] Encounter Details Date Type Department Care Team (Late st Contact Info) Description 09/14/2023 Abstract [facility] MEDICINE [address] [place] [address] Cele Espino [place] Social History Tobacco Use Types Packs/Day Years Used Date Smoking Tobacco: Never Passive Smoke Exposure: Never Smokeless Tobacco: Never Alcohol Use Standard Drinks/Week Comments Yes 0 (1 standard drink = 0.6 oz pur e alcohol) Depression Answer Date Recorded Patient Health Questionnaire-9 Score 17 06/29/2023 Patient Health Questionnaire-9 Score 17 06/29/2023 Last PHQ-9: Questionnaire Data Not on file 1 08/30/2022 Housing Stability Answer Date Recorded What is your housing situation today? I have geno grover 06/29/[address] you li ve. Do you have problems with any of the following? None of the above 06/29/2023 Food Insecurity Answer Date Recorded Within the past 12 months, y ou worried that your food would run out before you got money to buy more: Never True 06/29/2023 Within the past 12 months,th e food you bought just didn't last and you didn't have enough money to get more: Never True Transportation Answer Date Recorded In the past 12 months, has l ack of transportation kept you from medical appts, meetings, work or from getting things needed for daily living? No 06/29/2023 Utilities Answer Date Recorded In the past 12 months, has t he electric, gas, oil or water company threatened to shut off services in your home? No 06/29/2023 Depression Answer Date Recorded Patient Health Questionnaire-2 Score 4 06/29/2023 Sex and Gender Information Value Date Recorded Sex Assigned at Male 05/16/2022 10:17 AM EDT Legal Sex Male 10:17 AM EDT Gender Identity Male 05/16/2022 10:17 AM EDT Sexual Orientation Straight 05/16/2022 10 :17 AM EDT documented as of this encounter Plan of Treatment Not on file documented as of this encounter Procedures Procedure Name Priority Date/Time Associated Diagnosis Comments COLONOSCOPY Routine 09/12/2023 documented in this encounter Results * Colonoscopy (09/12/2023) Colonoscopy Normal Normal, BIRADS 0 , BIRADS 1 , BIRADS 2, BIRADS 3 , BIRADS 4+ us Historical Provider HEALTH MAINTENANCE Final Result documented in this encounter Visit Diagnoses Not on filedocumented in this encounter Additional Health Concerns Assessment Noted Time PHQ-9 Depression Total Score: 17 023 4:05 PM EST documented as of this encounter Care Teams Shirt Folding Machine Operator Relationship Specialty Start Date End Date Perla Golden ANP [address] [place] [id number] PCP - General Family Medicine 12/03/19 documented as of this encounter
--- OUTSIDE RECORDS SUMMARY | 2024-10-22 08:46 | XMS_ITS | Encounter Summary ---
Author Organization [facility] Address [address] [facility] [address] [place] [address] Care Team Providers Care Water Plant Pump Operator Name Role Phone Perla Golden Primary Care Provider [phone] Encounter Details Date Type Department Care Team (Latest Contact Info) Description 10/18/2024 Travel Social History Tobacco Use Types Packs/Day Years Used Date Smoking Tobacco: Never Passive Smoke Exposure: Never Smokeless Tobacco: Never Alcohol Use Standard Drinks/Week Comments Yes 0 (1 standard drink = 0.6 oz pur e alcohol) Alcohol Answer Date Recorded How often do you have a drink containing alcohol ? 2 06/20/2024 Average Number of Drinks Not on file 024 Frequency of Binge Drinking Not on file 11/2023 Depression Answer Date Recorded Patient Health Questionnaire-9 Score 17 10/18/2024 Patient Health Questionnaire-9 Score 17 10/18/2024 Last PHQ-9: Questionnaire Data Not on file 0 10/18/2024 Housing Stability Answer Date Recorded What is your housing situation today? I have geno grover 10/08/[address] you li ve. Do you have problems with any of the following? None of the above 10/08/2024 Food Insecurity Answer Date Recorded Within the past 12 months, y ou worried that your food would run out before you got money to buy more: Sometimes True 2024 Within the past 12 months,th e food you bought just didn't last and you didn't have enough money to get more: Sometimes True 10/08/2024 Transportation Answer Date Recorded In the past 12 months, has l ack of transportation kept you from medical appts, meetings, work or from getting things needed for daily living? No 10/08/2024 Utilities Answer Date Recorded In the past 12 months, has t he electric, gas, oil or water company threatened to shut off services in your home? No 10/08/2024 Depression Answer Date Recorded Patient Health Questionnaire-2 Score 4 10/18/2024 Internet Access Answer Date Recorded Internet Access Q1 Yes 03/15/2024 Internet Access Q2 Not on file 03/15/2024 Sex and Gender Information Value Date Recorded [...] Noted Time PHQ-9 Depression Total Score: 17 025 9:41 AM EDT documented as of this encounter Care Teams Water Plant Pump Operator Relationship Specialty Start Date End Date Perla Golden ANP [address] [place] [id number] PCP - General Family Medicine 12/03/19 documented as of this encounter
--- OUTSIDE RECORDS SUMMARY | 2024-10-22 08:46 | XMS_ITS | Clinical Summary ---
Author Organization [employer] Address [address] [facility] [address] [place] [address] Care Team Providers Care Buckle Inspector Name Role Phone Perla Golden Primary Care Provider [phone] Allergies No known active allergies Medications * This document contains information received from the source organization and may not represent a complete record from that organization. chlorhexidine (Peridex) 0.12 % solution Place 15 mL into mouth between cheek and gum every 12 (twelve) hours. 021 Active cyanocobalamin (Vitamin B-12) 1000 MCG tablet Take 1 tablet by mouth Once per day. OTC gummy 022 Active sildenafil (Viagra) 50 MG tabletIndications :Erectile dysfunction, unspecified erectile dysfunction type Take 1 tablet 30-60 minutes before intercourse 20 tablet 1 024 Active buPROPion XL (Wellbutrin XL) 150 MG 24 hr tabletIndications :Depressive disorder Take 1 tablet (150 mg) by mouth in the morning. Do not crush, chew, or split. 90 tablet 1 024 Active atorvastatin (Lipitor) 20 MG tabletIndications :Mixed hyperlipidemia Take 1 tablet (20 mg) by mouth at bedtime. 90 tablet 1 024 Active finasteride (Proscar) 5 MG tabletIndications :Benign prostatic hyperplasia with nocturia Take 1 tablet (5 mg) by mouth Once per day. 90 tablet 1 025 Active hydrocortisone (Anusol-HC) 2.5 % rectal creamIndications: Anal skin tag Insert as directed twice daily for up to 7 days if needed for hemorrhoids/an al irritation 28 g 025 Active finasteride (Proscar) 5 MG tablet Take 1 tablet by mouth 1 (one) time each day. 2024 Discontinued(R eorder (will not trigger notification to Pharmacy)) hydrOXYzine pamoate (Vistaril) 50 MG capsule take 1 capsule by oral route 3 times every day as needed 2024 Discontinued(T herapy completed) ketoconazole (NIZOral) 2 % shampoo apply by topical route 3x/wk to the affected area(s), lather, leave in place for 5 minutes, and then rinse off with water 021 2024 Discontinued(T herapy completed) tamsulosin (Flomax) 0.4 MG 24 hr capsule Take 1 capsule by mouth at bed time. 2024 Discontinued(S isaías effects) Active Problems Problem Noted Date Diagnosed Date Moderate depressive disorder 06/29/2023 Assessment & Plan (10/18/2024 12:00 PM EDT): During IBH Consult Ángel presenting with depressed mood, Tearful, crying spells , hopelessness, irritable mood, loss of interests/pleasure , sense of isolation/loneliness , isolating, change in appetite or weight reduce appetite, changes in sleep difficulty falling asleep, fatigue/loss of energy, worthlessness, inappropriate/excessive guilt , difficulty concentrating, indecisiveness, intense sorrow, anger feelings, feeling of emptiness after losing his adult son; for a period of 18+ mo, for most or all symptoms in the context of and family issues. Ángel reported being able to manage sxs using coping strategies. His grieving process after the passing of her son is an on-going painful process for the pt. He is currently taking medication to treat sxs. Family is more important value and main strength. Pt aware that grief is not a linear process and reports having good and bad days associated with his loss. Pt was given a space to share his emotions and sadness while being validated. clinician will provide on-going support. Assessment & Plan (06/21/2024 9:50 AM EST): During IBH Consult Ángel presenting with depressed mood, Tearful, crying spells , hopelessness, irritable mood, loss of interests/pleasure , sense of isolation/loneliness , isolating, psychomotor retardation, fatigue/loss of energy, worthlessness, inappropriate/excessive guilt , difficulty concentrating, indecisiveness; for a period of 18+ mo, for most or all symptoms in the context of , family issues, and relationship issues. Pt reported having good and bad days associated with his loss (his adult son unexpectedly on 09/30/2023). Currently having relationship problems which is also increasing presentation of sxs. Pt will be traveling to [facility] (where he's originally from) to distract himself. Ángel is concerned for his marriage and unsure about the future and how that would be for his marriage. clinician engaged patient with active/reflective listening. Reviewed and assessed for risk, current stressors and protective factors using open-ended questions. Provided grief counseling and therapeutic approach through session. Pt will seek out for additional support from the [facility] team when he comes back from [facility] (in two months). Assessment & Plan (07/04/2023 1:42 PM EST): During IBH Consult Ángel presenting with depressed mood, loss of interests/pleasure , changes in sleep difficulty falling asleep, trouble concentrating, thoughts of worthlessness or guilt, fatigue/loss of energy, inappropriate guilt , hopelessness, worthlessness , difficulty concentrating and excessive worry/anxiety, difficulty controlling worry, restless/keyed up/On edge, easily fatigued, and irritability; for a period of 6-12 mo, for all symptoms in the context of family issues relationship issues. Ángel is open to discuss grief support groups. Recent of adult son is identified as trigger. Pt agreed to do follow-ups with clinician and get extra support throughout his healing process. PLAN: (check all that apply) Continue with current services (defined as services in the past 12 months) , Behavioral Health Integration Plan Internal Follow up with [facility], Patient Self Plan Patient to utilize skills provided in intervention , Patient to reach out to [facility] team as needed, Comply with medication , Patient to engage in OP therapy , and Patient to reach out to [facility] as needed. Assessment & Plan (06/30/2023 4:24 PM EST): During IBH Consult Ángel presenting with depressed mood, loss of interests/pleasure , changes in sleep difficulty falling asleep, change in appetite or weight reduce appetite, trouble concentrating, thoughts of worthlessness or guilt, fatigue/loss of energy, inappropriate guilt , hopelessness, worthlessness , difficulty concentrating and excessive worry/anxiety, difficulty controlling worry, restless/keyed up/On edge, difficulty concentrating/Mind going blank , muscle tension, and sleep disturbance difficulty falling asleep; for a period of 6-12 mo, for all symptoms in the context of marriage relationship issues. Ángel's son on September 2022. It's been hard for Ángel to recover from his lost. Marital problems are also identified as one of the trigger for increase of symptoms. PLAN: (check all that apply) New/Additional Services needed PCP management Off-site services for , Behavioral Health Integration Plan Internal Follow up with [facility], External OP therapy referral , Patient Self Plan Patient to utilize skills provided in intervention , Patient to [facility] out to [facility] team as needed, Comply with medication , Patient to engage in OP therapy , and Patient to reach out to [facility] as needed. Patient will also benefit from participating in grief groups. Clinician will discuss about this during next follow-up appointment. Assessment & Plan (06/29/2023 3:08 PM EST): Patient with a long Hx of depression and anxiety, seen in the past by Dr. fleming Pt lost his son back in September 2022 and since then his depression has been acting up. I contacted [facility] and lat time they filled his Wellbutrin was back in September I asked our [facility] clinician to meet with patient to re connect him to services and I have agreed to re-start his Wellbutrin at a Lower dose since he has been without for so long I have asked that he come back to see his PCP in 1 month Will obtain a TSH, B12 and some baseline blood work as well Pt denies any SI. Grief reaction with prolonged bereavement 2022 Assessment & Plan (10/18/2024 12:00 PM EDT): During IBH Consult Ángel presenting with depressed mood, Tearful, crying spells , hopelessness, irritable mood, loss of interests/pleasure , sense of isolation/loneliness , isolating, change in appetite or weight reduce appetite, changes in sleep difficulty falling asleep, fatigue/loss of energy, worthlessness, inappropriate/excessive guilt , difficulty concentrating, indecisiveness, intense sorrow, anger feelings, feeling of emptiness after losing his adult son; for a period of 18+ mo, for most or all symptoms in the context of and family issues. Ángel reported being able to manage sxs using coping strategies. His grieving process after the passing of her son is an on-going painful process for the pt. He is currently taking medication to treat sxs. Family is more important value and main strength. Pt aware that grief is not a linear process and reports having good and bad days associated with his loss. Pt was given a space to share his emotions and sadness while being validated. clinician will provide on-going support. Assessment & Plan (06/21/2024 9:50 AM EST): During IBH Consult Ángel presenting with depressed mood, Tearful, crying spells , hopelessness, irritable mood, loss of interests/pleasure , sense of isolation/loneliness , isolating, psychomotor retardation, fatigue/loss of energy, worthlessness, inappropriate/excessive guilt , difficulty concentrating, indecisiveness; for a period of 18+ mo, for most or all symptoms in the context of , family issues, and relationship issues. Pt reported having good and bad days associated with his loss (his adult son unexpectedly on 09/30/2023). Currently having relationship problems which is also increasing presentation of sxs. Pt will be traveling to [facility] (where he's originally from) to distract himself. Ángel is concerned for his marriage and unsure about the future and how that would be for his marriage. clinician engaged patient with active/reflective listening. Reviewed and assessed for risk, current stressors and protective factors using open-ended questions. Provided grief counseling and therapeutic approach through session. Pt will seek out for additional support from the [facility] team when he comes back from [facility] (in two months). Assessment & Plan (07/04/2023 1:42 PM EST): During IBH Consult Ángel presenting with depressed mood, loss of interests/pleasure , changes in sleep difficulty falling asleep, trouble concentrating, thoughts of worthlessness or guilt, fatigue/loss of energy, inappropriate guilt , hopelessness, worthlessness , difficulty concentrating and excessive worry/anxiety, difficulty controlling worry, restless/keyed up/On edge, easily fatigued, and irritability; for a period of 6-12 mo, for all symptoms in the context of family issues relationship issues. Ángel is open to discuss grief support groups. Recent of adult son is identified as trigger. Pt agreed to do follow-ups with clinician and get extra support throughout his healing process. PLAN: (check all that apply) Continue with current services (defined as services in the past 12 months) , Behavioral Health Integration Plan Internal Follow up with [facility], Patient Self Plan Patient to utilize skills provided in intervention , Patient to reach out to [facility] team as needed, Comply with medication , Patient to engage in OP BH therapy , and Patient to reach out to [facility] as needed. Assessment & Plan (06/30/2023 4:24 PM EST): During IBH Consult Ángel presenting with depressed mood, loss of interests/pleasure , changes in sleep difficulty falling asleep, change in appetite or weight reduce appetite, trouble concentrating, thoughts of worthlessness or guilt, fatigue/loss of energy, inappropriate guilt , hopelessness, worthlessness , difficulty concentrating and excessive worry/anxiety, difficulty controlling worry, restless/keyed up/On edge, difficulty concentrating/Mind going blank , muscle tension, and sleep disturbance difficulty falling asleep; for a period of 6-12 mo, for all symptoms in the context of marriage relationship issues. Ángel's son on September 2022. It's been hard for Ángel to recover from his lost. Marital problems are also identified as one of the trigger for increase of symptoms. PLAN: (check all that apply) New/Additional Services needed PCP management Off-site services for BH, Behavioral Health Integration Plan Internal Follow up with [facility], External OP BH therapy referral , Patient Self Plan Patient to utilize skills provided in intervention , Patient to reach out to [facility] team as needed, Comply with medication , Patient to engage in OP BH therapy , and Patient to reach out to [facility] as needed. Patient will also benefit from participating in grief groups. Clinician will discuss about this during next follow-up appointment. Cervical radiculopathy 09/04/2018 Assessment & Plan (06/29/2023 3:18 PM EST): Patient of Perla Golden Here after he hade some difficulties scheduling a follow up with PCP Pt today c/o neck pain According to PCPs notes, patient was referred to ortho 12/2021 patient with right sided radicular neck pain and mild right hand weakness in setting of known disc herniation in the past, CT C-spine showed multilevel degenerative disease with foraminal stenosis. Per [facility] notes: MRI showed: severe right-sided foraminal stenosis and moderate left-sided foraminal stenosis at C5-C6 secondary to a combination of uncovertebral joint and facet arthropathy. Moderate right-sided foraminal stenosis is also present at C4-C5 and C6-C7. According to PCP referral to Neurosurgery was made a few years ago but they did not see him since they felt that surgical intervention was not warranted. On exam today, evidence of muscle spasm Plan: Naprosyn PRN for pain, will avoid muscle relaxants for now given his c/o poor concentration Might need to add when he comes see PCP in 1 month Will refer to [facility] for evaluation he might benefit from non surgical approaches. Displacement of cervical intervertebral disc Benign prostatic hyperplasia with urinary obstru ction 12/26/2017 Assessment & Plan (06/29/2023 3:03 PM EST): Under the care of Dr. Park, last note on record 09/30/2022 12 month follow up recommended Cobalamin deficiency 12/26/2017 Knee pain 12/26/2017 Hyperlipidemia 04/15/2013 Overview (03/19/2024): Atorvastatin 10mg daily Lifestyle interventions: be as active as able, ideally exercise 150min moderate intensity or 75min vigorous intensity weekly; increase intake of vegetables, fruits, whole grains, fish. Try to minimize intake of sugary or greasy food and drink. Use olive oil or vegetable, peanut, canola, or similar oil for cooking. Non-smoker. Assessment & Plan (06/29/2023 2:44 PM EST): Pt's most recent Lipid profile from 07/2022 showed: Component Ref Range & Units 10 mo ago 1 yr ago 2 yr ago 3 yr ago Cholesterol, Total <200 mg/dL 214??High?? 205??High?? 187 189 HDL Cholesterol > OR = 40 mg/dL 55 53 55 50 Triglycerides <150 mg/dL 66 81 54 54 LDL Cholesterol mg/dL (calc) 143??High?? 134??High?? CM 117??High?? CM 124??High?? CM Comment: Reference range: <100 ?? Desirable range <100 mg/dL for primary prevention; ?? <70 mg/dL for patients with CHD or diabetic patients with > or = 2 CHD risk factors. ?? LDL-C is now calculated using the Marko calculation, which is a validated novel method providing better accuracy than the Friedewald equation in the estimation of LDL-C. Lazaro ABDUL et al. OPAL. 2013;310(19): 6544-9236 (http://education.Backyard Brains/faq/YNG943) Chol/HDLC Ratio <5.0 (calc) 3.9 3.9 3.4 3.8 Non-HDL Cholesterol <130 mg/dL (calc) 159??High?? 152??High?? CM 132??High?? CM 139??High?? CM Anxiety 09/10/2012 Irritable bowel syndrome 09/10/2012 Encounters * This document contains information received from the source organization and may not represent a complete record from that organization. Date Type Department Care Team Description 10/18/2024 9:45 AM EDT Office Visit [address] [id number] Perla Golden ANP Cobalamin deficiency (Primary Dx); Mixed hyperlipidemia; Benign prostatic hyperplasia with nocturia; Anal skin tag; Moderate depressive disorder 10/18/2024 Travel 10/08/2024 Patient Outreach [facility] [address] [place] [phone] Perla Golden ANP Care Coordination (CHW outreach for SDOH food needs-referral completed /) 10/08/2024 Patient Outreach [address] [address] Perla Golden ANP Pre-visit Planning (SDOH Screening positive and Tobacco screening negative) 09/25/2024 Refill [facility] [address], [place] [phone] Perla Golden ANP Mixed hyperlipidemia from Last 3 Months Immunizations Name Administration Dates Next Due Hep B, Adolescent or Pediatric 06/05/2006,2005,10/05/2005 Influenza, Split (incl. anahy fied surface antigen) 04/06/2012 MMR 11/03/2005 Moderna Covid-19 Vaccine 6+ Bivalent 08/04/2022 Pneumococcal Conjugate PCV 20 06/20/2024 TD (adult), 2 Lf tetanus tox oid, preservative free, adsorbed 02/20/2018,10/05/2005 Tdap 04/01/2020 Zoster, Recombinant 10/26/2023,07/25/2023 Family History Medical History Relation Name Comments Esophageal cancer Mother Relation Name Status Comments Mother Social History Tobacco Use Types Packs/Day Years Used Date Smoking Tobacco: Never Passive Smoke Exposure: Never Smokeless Tobacco: Never Tobacco Cessation:Counseling Given: Not Answered Alcohol Use Standard Drinks/Week Comments Yes 0 [...] Orientation Straight 05/16/2022 10 :17 AM EDT Last Filed Vital Signs Vital Sign Reading Time Taken Comments Blood Pressure 121/77 10/18/2024 9:37 AM EDT Pulse 73 10/18/2024 9:37 AM EDT Temperature 36.3 ??C (97.3 ??F) 10/18/2024 9:37 AM ED T Respiratory Rate 14 10/18/2024 9:37 AM EDT Oxygen Saturation 96% 10/18/2024 9:37 AM EDT Inhaled Oxygen Concentration - - Weight 73.5 kg (162 lb) 10/18/2024 9:37 AM EDT Height 165.1 cm (5' 5 ) 06/20/2024 11:31 AM EST Body Mass Index 26.96 06/20/2024 11:31 AM EST Plan of Treatment Health Maintenance Due Date Last Done Comments CT Colonography 1962 FIT DNA/Cologuard 1962 FIT 1962 FOBT 1962 Sigmoidoscopy 1962 Hepatitis C Screening 1980 COVID-19 Vaccine ( season) 2024 08/04/2022, 09/02/2021, 12/02/2020, Additional history exists Influenza Vaccine (#1) 2024 04/06/2012 Depression Monitoring (PHQ-9) 04/19/2025 10/18/2024, 10/18/2024 Alcohol/Substance Use Screening 06/20/2025 06/20/2024 SDOH Screening 10/08/2025 10/08/2024 Depression Screening 10/18/2025 10/18/2024, 10/19/19 Tobacco Screening 10/18/2025 10/18/2024 Lipid Panel 03/20/2029 03/20/2024, 06/16, 08/05/2022, Additional history exists DTaP/Tdap/Td Vaccines (2 - Td or Tdap) 04/01/2030 04/01/2020, 02/20/2018, 10/05/2005 Colonoscopy 09/12/2033 09/12/2023 Colorectal Cancer Screening 09/12/2033 RSV Patients and Patients Aged 60 years or older (1 - 1-dose 75+ series) 2037 Hepatitis B Vaccines Aged Out 06/05/2006, 11/10/2005, 10/05/2005 No longer eligible based on patient's age to complete this topic HIV Screening Completed 07/28/2021 Zoster Vaccines Completed 10/26/2023, 07/25/2023 Pneumococcal Vaccine: 50+ Years Completed 06/20/2024 HIB Vaccines Aged Out No longer eligi ble based on patient's age to complete this topic HPV Vaccines Aged Out No longer eligi ble based on patient's age to complete this topic Hepatitis A Vaccines Aged Out No long er eligible based on patient's age to complete this topic IPV Vaccines Aged Out No longer eligi ble based on patient's age to complete this topic Meningococcal Vaccine Aged Out No kacy yeyo eligible based on patient's age to complete this topic RSV under 20 months Aged Out No longe r eligible based on patient's age to complete this topic Rotavirus Vaccines Aged Out No longer eligible based on patient's age to complete this topic Procedures Procedure Name Priority Date/Time Associated Diagnosis Comments LIPID PANEL, STANDARD Routine 03/20/2024 8:18 AM EDT Mixed hyperlipidemia HM COLONOSCOPY Routine 09/12/2023 HIV 1/2 ANTIGEN/ANTIBODY, FOURTH GENERATION W/RFL Routine 07/28/2021 12:01 PM EST from Last 3 Months or Most Recently Relevant to Health Maintenance Results * (ABNORMAL) Lipid Panel, Standard (03/20/2024 8:18 AM EDT) Triglycerides 91 <150 mg/dL [facility] Comment:Desirable Triglyceri de: less than 150 mg/dLBorderline High Triglyceride 150-199 mg/dLHigh Triglyceride: 200-499 mg/dLVery High Triglyceride: greater than or equal to 5OO mg/dL Cholesterol 208(H) <200 mg/dL [facility] Comment:Desirable Cholestero l: less than 200 mg/dLBorderline High Cholesterol: 200-239 mg/dLHigh Cholesterol: greater than 239 mg/dL LDL Cholesterol Calculated 135(H) <100 mg/dL [facility] Comment:Desirable LDL: less than 100 mg/dLNear Optimal/Above Optimal LDL: 110- 129 mg/dLBorderline High LDL: 130-159 mg/dLHigh LDL: 160-189 mg/dLVery High LDL: greater than or equal to 190 mg/dL HDL Cholesterol 55 >40 mg/dL [facility] Comment:Desirable HDL: great er than 40 mg/dL Note: This HDL assay may give artificially low results in patients with liver disease. Blood Venous blood specimen / Unknown 03/20/2024 8:18 AM EDT 03/20/2024 10:56 AM EDT [facility] BLOOD ORDERABLES Final Resul t [facility] [address] [place] [address] [phone] * Colonoscopy (09/12/2023) Pathologist [facility] Colonoscopy Normal Normal, BIRADS 0 , BIRADS 1 , BIRADS 2, BIRADS 3 , BIRADS 4+ Historical Provider HEALTH MAINTENANCE Final Result * HIV 1/2 ANTIGEN/ANTIBODY,FOURTH GENERATION W/RFL (07/28/2021 12:01 PM EST) Pathologist [facility] HIV-1/2 ANTIGEN AND ANTIBODIES, 4TH GENERATION W/ REFLEX NON-REACT LOCO NON-REACT LOCO [facility] Comment: HIV-1 antigen and HIV-1/HIV-2 antibodies were not detected. There is no laboratory evidence of HIV infection. ?? PLEASE NOTE: This information has been disclosed to you from records whose confidentiality may be protected by state law. ??If your state requires such protection, then the state law prohibits you from making any further disclosure of the information without the specific written consent of the person to whom it pertains, or as otherwise permitted by law. A general authorization for the release of medical or other information is NOT sufficient for this purpose. ? For additional information please refer to http://education.LeadiD/faq/KAW958 (This link is being provided for informational/ educational purposes only.) ? The performance of this assay has not been clinically validated in patients less than 2 years old. ?? 07/28/2021 12:0 1 PM EST us Esvin Farnsworth [facility] BLOOD ORDERABLES Final Result Performing Organization Address City/State/[facility] Phone Number [facility] Anywhere [address] from Last 3 Months or Most Recently Relevant to Health Maintenance Insurance [facility] MEDICARE ADVANTAGE HMO Care Teams Buckle Inspector Relationship Specialty Start Date End Date Perla Golden ANP [address] [place] [address] PCP - General Family Medicine 12/03/19
--- OUTSIDE RECORDS SUMMARY | 2024-10-22 08:46 | XMS_ITS | Encounter Summary ---
Author Organization [employer] Address [address] 7t [place] [address] Care Team Providers Care Building Insulation Installer Name Role Phone Perla Golden Primary Care Provider [phone] Reason for Visit * Reason Comments Med Refill Encounter Details Date Type Department Care Team ([facility] st Contact Info) Description 09/25/2024 Refill [facility] MEDICINE [address] [place], [place] [phone] Perla Golden ANP [address] [place] [address] Mixed hyperlipidemia Social History Tobacco Use Types Packs/Day Years [...] Answer Date Recorded Patient Health Questionnaire-9 Score 14 06/21/2024 Patient Health Questionnaire-9 Score 14 06/21/2024 Last PHQ-9: Questionnaire Data Not on file 1 08/22/2023 Housing Stability Answer Date Recorded What is [...] Date Recorded Patient Health Questionnaire-2 Score 4 06/21/2024 Internet Access Answer Date Recorded Internet Access [...] documented as of this encounter Visit Diagnoses Diagnosis Mixed hyperlipidemia documented in this encounter Additional Health Concerns Assessment Noted Time PHQ-9 Depression Total Score: 14 024 9:38 AM EST documented as of this encounter Care Teams Building Insulation Installer Relationship Specialty Start Date End Date Perla Golden ANP [address] [place] [id number] PCP - General Family Medicine 12/03/19 documented as of this encounter
--- OUTSIDE RECORDS SUMMARY | 2024-10-22 08:46 | XMS_ITS | Encounter Summary ---
Author Organization [facility] Address [address] [place] [address] 7 [place] [address] Care Team Providers Care Garment Supervisor Name Role Phone Perla Golden Primary Care Provider [phone] Reason for Referral * Consultation (Routine) - Closed Specialty Diagnoses / Procedures Referred By Danielle dooley Referred To Contact Urology Diagnoses Benign prostatic hyperplasia with nocturia Perla Golden ANP [address] [place] [address] Phone: tel: fax: [facility] Referral ID Status Reason Start Date Expiration Date V isits Requested Visits Authorized [id number] Closed Specialty Services Required 10/18/2024 10/18/2025 1 1 Reason for Visit * Reason Comments Annual Exam Encounter Details Date Type Department Care Team (Late st Contact Info) Description 10/18/2024 9:45 AM EDT Office Visit [facility] MEDICINE [address] [place], [place] [phone] Perla Golden ANP [address] [place] [address] Cobalamin deficiency (Primary Dx); Mixed hyperlipidemia; Benign prostatic hyperplasia with nocturia; Anal skin tag; Moderate depressive disorder Social History Tobacco Use Types Packs/Day Years [...] AM EDT documented as of this encounter Last Filed Vital Signs Vital Sign Reading Time Taken Comments Blood Pressure 121/77 10/18/2024 9:37 AM EDT Pulse 73 10/18/2024 9:37 AM EDT Temperature 36.3 ??C (97.3 ??F) 10/18/2024 9:37 AM ED T Respiratory Rate 14 10/18/2024 9:37 AM EDT Oxygen Saturation 96% 10/18/2024 9:37 AM EDT Inhaled Oxygen Concentration - - Weight 73.5 kg (162 lb) 10/18/2024 9:37 AM EDT Height - - Body Mass Index 26.96 06/20/2024 11:31 AM EST documented in this encounter Progress Notes * LINA Guerrier - 10/18/2024 9:45 AM EDT Images from the original note were not included. SUBJECTIVE: Ángel Tilley is a 64 y.o. year old male who presents for comprehensive exam . PMH anxiety, depression, BPH, b12 deficiency, IBS, HLD, neck pain, ED MOCA score 27 05/2024 [employer] utilized for Azerbaijani interpretation #[id number] Acute Concerns: Depression: met today w/ clinician Criselda Malloy today. ED: viagra brand name effective, generic ineffective. Neck pain better w/ TENS and stretching. He is feeling a bump or bubble near his anus. x2 weeks. No bleeding. No pain. No itching. No constipation. Does have some decreased hearing but wants to defer referral for audiology eval until financial situation improves. Family h/o prostate ca, was following w/ urology for nocturia, BPH. Colonoscopy 08/2023 normal proximo en 2033 PSA normal 08/23/23 Lab Results Component Value Date CHOLESTEROL 214 (H) 08/05/2022 HDLCHOL 55 08/05/2022 LDLCHOL 143 (H) 08/05/2022 TRIG 91 03/20/2024 TRIG 66 08/05/2022 Lab Results Component Value Date CHOL 208 (H) 03/20/2024 HDL 55 03/20/2024 LDLCHOLCAL 135 (H) 03/20/2024 TRIG 91 03/20/2024 TRIG 66 08/05/2022 The 10-year ASCVD risk score (Nikki WELLER, et al., 2019) is: 8.9% Values used to calculate the score: Age: 64 years Sex: Male Is Non- : No Diabetic: No Tobacco smoker: No Systolic Blood Pressure: 121 mmHg Is BP treated: No HDL Cholesterol: 55 mg/dL Total Cholesterol: 208 mg/dL Social History Social History Narrative Not on file Patient Active Problem List Diagnosis Anxiety Benign prostatic hyperplasia with urinary obstruction Cervical radiculopathy Cobalamin deficiency Moderate depressive disorder Displacement of cervical intervertebral disc Hyperlipidemia Irritable bowel syndrome Knee pain Grief reaction with prolonged bereavement Past Surgical History: Procedure Laterality Date COLONOSCOPY 2012 internal hemorrhoids ESOPHAGOSCOPY / EGD 2012 SHOULDER SURGERY Right 2012 Impingement Family History Problem Relation Name Age of Onset Esophageal cancer Mother Review of Systems Constitutional: Negative for chills and fever. HENT: Negative for sore throat. Respiratory: Negative for cough, shortness of breath and wheezing. Cardiovascular: Negative for chest pain and palpitations. Gastrointestinal: Negative for abdominal pain, constipation and diarrhea. Endocrine: Negative for polydipsia, polyphagia and polyuria. Genitourinary: Negative for dysuria. Musculoskeletal: Negative for back pain. Skin: Negative for rash. Neurological: Negative for dizziness and weakness. OBJECTIVE: Vitals: 10/18/24 0937 BP: 121/77 BP Location: Right arm Patient Position: Sitting BP Cuff Size: Adult Pulse: 73 Resp: 14 Temp: 97.3 ??F (36.3 ??C) TempSrc: Temporal SpO2: 96% Weight: 162 lb (73.5 kg) Physical Exam Vitals reviewed. Constitutional: General: He is not in acute distress. Appearance: Normal appearance. He is not ill-appearing. HENT: Head: Normocephalic and atraumatic. Right Ear: Tympanic membrane, ear canal and external ear normal. Left Ear: Tympanic membrane, ear canal and external ear normal. Nose: No congestion. Eyes: General: No scleral icterus. Extraocular Movements: Extraocular movements intact. Pupils: Pupils are equal, round, and reactive to light. Cardiovascular: Rate and Rhythm: Normal rate and regular rhythm. Pulmonary: Effort: Pulmonary effort is normal. No accessory muscle usage or respiratory distress. Breath sounds: Normal breath sounds. Genitourinary: Comments: Anal skin tag Musculoskeletal: Right lower leg: No edema. Left lower leg: No edema. Skin: General: Skin is warm and dry. Neurological: Mental Status: He is alert and oriented to person, place, and time. Mental status is at baseline. Cranial Nerves: No cranial nerve deficit. Motor: No weakness. Coordination: Coordination normal. Gait: Gait normal. Psychiatric: Mood and Affect: Mood normal. Behavior: Behavior normal. ASSESSMENT/PLAN Ángel was seen today for annual exam. Diagnoses and all orders for this visit: Cobalamin deficiency (Primary) He will cont OTC B12 gummy and check labs as below - Vitamin B12; Future - CBC auto differential; Future Mixed hyperlipidemia Lifestyle recommendations to improve heart health & lower cholesterol: be as active as able, ideally exercise 150min moderate intensity or 75min vigorous intensity weekly; increase intake of vegetables, fruits, whole grains, fish. Try to minimize intake of sugary or greasy food and drink. Use olive oil or vegetable, peanut, canola, or similar oil for cooking. Decrease or stop drinking alcoholif you drink, quit/decrease smoking if you smoke. Cont atorvastatin 20mg daily - Lipid Panel, Standard; Future - Comprehensive Metabolic Panel; Future Benign prostatic hyperplasia with nocturia Comments: Re-referral to urology to cont care. Flomax yielded retrograde ejaculation. Re- start finasteride. Orders: - finasteride (Proscar) 5 MG tablet; Take 1 tablet (5 mg) by mouth Once per day. - Referral to Urology; Future Anal skin tag - hydrocortisone (Anusol-HC) 2.5 % rectal cream; Insert as directed twice daily for up to 7 days ifneeded for hemorrhoids/anal irritation Moderate depressive disorder Cont wellbutrin XL 150mg daily Cont plan per , will have follow-up w/ clinician Sanjuanita Pimentel for grief counseling Follow Up: 4 mo Current Outpatient Medications on File Prior to Visit Medication Sig Dispense Refill atorvastatin (Lipitor) 20 MG tablet Take 1 tablet (20 mg) by mouth at bedtime. 90 tablet 1 buPROPion XL (Wellbutrin XL) 150 MG 24 hr tablet Take 1 tablet (150 mg) by mouth in the morning. Donot crush, chew, or split. 90 tablet 1 chlorhexidine (Peridex) 0.12 % solution Place 15 mL into mouth between cheek and gum every 12 (twelve) hours. cyanocobalamin (Vitamin B-12) 1000 MCG tablet Take 1 tablet by mouth Once per day. OTC gummy hydrOXYzine pamoate (Vistaril) 50 MG capsule take 1 capsule by oral route 3 times every day as needed sildenafil (Viagra) 50 MG tablet Take 1 tablet 30-60 minutes before intercourse 20 tablet 1 [DISCONTINUED] finasteride (Proscar) 5 MG tablet Take 1 tablet by mouth 1 (one) time each day. [DISCONTINUED] ketoconazole (NIZOral) 2 % shampoo apply by topical route 3x/wk to the affected area(s), lather, leave in place for 5 minutes, and then rinse off with water [DISCONTINUED] tamsulosin (Flomax) 0.4 MG 24 hr capsule Take 1 capsule by mouth at bed time. No current facility-administered medications on file prior to visit. documented in this encounter Plan of Treatment Scheduled Orders Name Type Priority Associated Diagnoses Orde r Schedule Lipid Panel, Standard Lab Routine Mixed hyperlipidemia Expected: 10/18/2024 (Approximate), Expires: 10/18/2025 Comprehensive Metabolic Panel Lab Routine Mixed hyperlipidemia Expected: 10/18/2024 (Approximate), Expires: 10/18/2025 Vitamin B12 Lab Routine Cobalamin deficiency Expected: 10/18/2024 (Approximate), Expires: 10/18/2025 CBC auto differential Lab Routine Cobalamin deficiency Expected: 10/18/2024 (Approximate), Expires: 10/18/2025 Scheduled Referrals Name Type Priority Associated Diagnoses Orde r Schedule Referral to Urology Outpatient Referral Routine Benign prostatic hyperplasia with nocturia Expected: 10/18/2024 (Approximate), Expires: 10/18/2025 documented as of this encounter Visit Diagnoses Diagnosis Cobalamin deficiency- Primary Other B-complex deficiencies Mixed hyperlipidemia Benign prostatic hyperplasia with nocturia Anal skin tag Moderate depressive disorder documented in this encounter Additional Health Concerns Assessment Noted Time PHQ-9 Depression Total Score: 17 025 9:41 AM EDT documented as of this encounter Care Teams Garment Supervisor Relationship Specialty Start Date End Date Perla Golden ANP [address] [place] [id number] PCP - General Family Medicine 12/03/19 documented as of this encounter
[2024-10-22 09:03] LABS: Basophils Absolute Auto 0.1 X10*3/uL (0.0-0.2); Basophils Percent Auto 0.9 % (0-2); Eosinophils Absolute Auto 0.3 X10*3/uL (0.0-0.4); Eosinophils Percent Auto 4.7 % (0-4); Hematocrit 44.2 % (42.0-52.0); Imm Gran Abs Auto 0.02 X10*3/uL (0.00-0.03); Imm Gran Pct Auto 0.3 % (0.0-0.4); Lymphocytes Absolute Auto 2.8 X10*3/uL (1.2-4.9); Lymphocytes Percent Auto 49.3 % (20-40); Mean Corpuscular HGB Conc 33.9 g/dl (31.0-36.0); Mean Corpuscular Hemoglobin 30.1 pg (27.0-33.0); Mean Corpuscular Volume 88.8 fL (80.0-98.0); Monocytes Absolute Auto 0.5 X10*3/uL (0.1-1.2); Monocytes Percent Auto 9.1 % (2-11); Neutrophils Absolute Auto 2.1 x10*3/uL (2.0-8.3); Neutrophils Percent Auto 35.7 % (45-73); Platelet Count 222 X10*3/uL (160-400); Red Blood Count 4.98 X10*6/uL (4.60-5.80); White Blood Count 5.7 X10*3/uL (4.8-10.8)
[2024-10-22 10:00] LABS: Alanine Aminotransferase 50 U/L (0-40); Albumin Level 4.2 g/dL (3.5-5.0); Anion Gap 9 (12-20); Aspartate Amino Transferase 31 U/L (5-37); Bilirubin Total 0.4 mg/dL (0.0-1.0); Blood Urea Nitrogen 21 mg/dL (9-16); Calcium 9.5 mg/dL (8.4-10.2); Carbon Dioxide 29 mmol/L (22-29); Chloride 107 mmol/L (96-108); Cholesterol 217 mg/dL (<200); Estimated Glomerular Filt Rate > 60; Glucose Random 94 mg/dL (60-115); HDL Cholesterol 46 mg/dL (>40); LDL Cholesterol Calculated 155 mg/dL (<100); Potassium 4.3 mmol/L (3.3-5.1); Sodium 141 mmol/L (135-145); Total Protein 7.6 g/dL (6.5-8.0); Triglycerides 83 mg/dL (<150)
[2024-10-22 10:01] LABS: Alkaline Phosphatase 74 U/L (39-117)
[2024-10-22 10:21] LABS: Vitamin B12 413 pg/mL (200-900)
== END 2024-10-22 08:26 | disposition home or self-care (01) ==
LOC: HO.LAB 08:25
PROVIDERS: PCP Nurse Practitioner Primary Care; Visit Provider Nurse Practitioner Primary Care
DX: E78.2 Mixed hyperlipidemia (principal); E53.8 Deficiency of other specified B group vitamins
CPT/HCPCS: 36415; 80053; 80061; 82607; 85025

== ENCOUNTER 2024-12-24 07:00 | Outpatient (REF) | payer MEDICARE, SELFPAY ==
[2024-12-24 08:09] LABS: PSA,Total (Free>4and<10) 6.04 ng/mL (0.00-4.00)
[2024-12-25 13:33] LABS: Free Prostate Spec Ag 1.5 ng/mL; Percent Free Prostate Spec Ag 28 % (calc) (>25); Prostate Specific Ag Total 5.4 ng/mL (< OR = 4.0)
== END 2024-12-24 07:01 | disposition home or self-care (01) ==
LOC: HO.LAB 07:00
PROVIDERS: PCP Nurse Practitioner Primary Care; Visit Provider Urology
DX: R97.20 Elevated prostate specific antigen [PSA] (principal); N40.1 Benign prostatic hyperplasia with lower urinary tract symptoms; R33.8 Other retention of urine; Z12.5 Encounter for screening for malignant neoplasm of prostate
CPT/HCPCS: 36415; 81003; 84153; 84154; 99212

== ENCOUNTER 2024-12-24 10:53 | Outpatient (AMB) | payer MEDICARE, SELFPAY ==
--- NOTE | 2024-12-24 11:01 | MHC.OFFVIS ---
Intake Visit Reasons: 1y follow up Intake Note: Patient is present for 1y follow Up Urology Med: Finasteride Antibiotic Allergy: None Blood Thinner: None Straightener And Aligner Required: No Allergies No Known Allergies Allergy (Verified 12/24/24 11:02) HPI Comments Details: SYD is a pleasant Columbian male. He is seen for the following urologic conditions - lower urinary tract symptoms - urinary retention Irish translation provided in office by qualified emergency medical service coordinator Has stop finasteride PSA returned 6.1 Free percentage not resulted Repeat lab work six-month Lower urinary tract symptoms Predominantly obstructive Had responded well to tamsulosin in the past but stopped this himself Secondary to side effects of retrograde ejaculation Current therapy cyclic finasteride Family history prostate cancer PSA - 03/06 10, 05/06 3.5, 10/05 3.8, 04/07 3.1, 08/08 2.8, 01/08 6.1 Bladder US 08/08 - 30gm Prior PSA in the 4-5 range. Biopsy performed 2009 negative and 2019 Follow-up in 6 months time with repeat PSA PFSH Medical History Arthritis Depression Back pain Bacteremia Elevated prostate specific antigen [PSA] Urge incontinence Benign prostatic hyperplasia with lower urinary tract symptoms Surgical History (Updated 09/12/23 @ 12:05 by HANSEL Abad) S/P LASIK surgery H/O colonoscopy H/O prostate biopsy H/O shoulder surgery Family History Mother Esophagus cancer Sister Breast cancer Social History Alcohol intake: current Alcohol intake frequency: holidays/special occasions only Patient Tobacco Use Status: Former Tobacco user Current occupational status: disabled Current occupation: rt hand Review of Systems Const Denies chills and Denies fever(s) Card Reports no additional complaints and Denies syncope Resp Denies cough GI Denies abdominal pain and Denies heartburn Reports as per HPI and Denies change in libido Neuro Denies syncope Psych Denies change in libido Endo Denies change in libido Physical Exam Const General: cooperative, healthy appearing, comfortable and no acute distress Orientation/consciousness: patient oriented x3 HEENT Face and sinus: Yes normal facial exam Mouth: moist mucous membranes Neck Neck: Yes normal visual inspection, Yes full ROM and Yes trachea midline Chest Chest palpation & inspection: normal inspection of the chest Resp Effort & Inspection: normal respiratory effort, able to speak in complete sentences and no respiratory distress GI Inspection: Yes normal to inspection Back/Spine/Pelvis Cervical Spine: normal cervical lordosis Thoracic/Lumbar Spine: thoracic and lumbar spine normal to inspection Skin General skin exam: no rashes or lesions noted Neuro General: patient oriented x3, gait normal, tone normal and moves all extremities Extrem General: Yes normal to inspection and Yes capillary refill normal Results AMB Urinalysis, Automated UA Leukoctes 0 Lydia/uL Last Edit by IRAM Nj on 12/24/24 11:13 UA Nitrite Negative Last Edit by Mellissa Nieves CCM on 12/24/24 11:13 UA Urobilinogen 0.2 mg/dL Last Edit by Mellissa Nieves CCM on 12/24/24 11:13 UA Protein 30 mg/dL Last Edit by Mellissa Nieves CCM on 12/24/24 11:13 UA pH 6.0 Last Edit by Mellissa Nieves CCM on 12/24/24 11:13 UA Blood 0 Jeremy/uL Last Edit by Mellissa Nieves CCM on 12/24/24 11:13 UA Specific [place] 1.020 Last Edit by Mellissa Nieves CCM on 12/24/24 11:13 UA Ketone Negative Last Edit by Mellissa Nieves CCM on 12/24/24 11:13 UA Bilirubin 1 mg/dL Last Edit by Mellissa Nieves CCM on 12/24/24 11:13 UA Glucose 0 mg/dL Last Edit by Mellissa Nieves CCM on 12/24/24 11:13 Results Reviewed Results Reviewed: Laboratory Last Values Urine pH (Auto) 6.0 12/24/24 11:11 Specific [place] (Auto) 1.020 12/24/24 11:11 Urine Protein (Auto) 30 mg/dL 12/24/24 11:11 Glucose (UA)(Auto) 0 mg/dL 12/24/24 11:11 Urine Ketones (Auto) Negative 12/24/24 11:11 Urine Blood (Auto) 0 Jeremy/uL 12/24/24 11:11 Urine Nitrite (Auto) Negative 12/24/24 11:11 Urine Bilirubin (Auto) 1 mg/dL 12/24/24 11:11 Urine Urobilinogen (Auto) 0.2 mg/dL 12/24/24 11:11 Leukocyte Esterase (Auto) 0 Lydia/uL 12/24/24 11:11 Assessment & Plan Assessment & Plan (1) Benign prostatic hyperplasia with lower urinary tract symptoms: Code(s): N40.1 - Benign prostatic hyperplasia with lower urinary tract symptoms Category: Medical (2) Elevated prostate specific antigen [PSA]: Code(s): R97.20 - Elevated prostate specific antigen [PSA] Category: Medical Plan Six-month follow-up lab work Orders: Orders PSA,Total (Free>4and<10) 6 Months R97.20 - Elevated prostate specific antigen [PSA] PSA,Total (Free>4and<10) 08/23/23 R97.20 - Elevated prostate specific antigen [PSA] AMB Urinalysis Automated Today Z13.9 - Encounter for screening, unspecified Patient Instructions: This note is constructed using voice recognition software. While every effort has been made to ensure accuracy paradi operator errors may have been included. Imaging studies, laboratory and physical exam results were discussed and reviewed in detail. No major barriers to patient understanding were identified. An opportunity to ask questions regarding the treatment plan was provided. All questions were answered. The patient expressed understanding and agreement with the above treatment plan. The patient is aware they should contact our office by phone for worsening of their current condition or the appearance of new urologic symptoms. Compliance is encouraged with any medications and followup testing that is ordered. It is a privilege to participate in the urologic care of your patient. If you have any questions or concerns regarding treatment for the above conditions, or other urologic issues, please do not hesitate to contact me. The office telephone contact is [phone]. Sincerely, Dr Micheal Park MD, [facility] - Urology Compassionate Specialist Care for the Genitourinary System Coding Level of Care Code Est Pt Level 3 (57459) Complex EM visit Add On G2211 Diagnoses Benign prostatic hyperplasia with lower urinary tract symptoms N40.1 Elevated prostate specific antigen [PSA] R97.20
--- OUTSIDE RECORDS SUMMARY | 2024-12-24 12:54 | XMS_ITS | Encounter Summary ---
Author Organization [facility] Address [address] [place] [address] Care Team Providers Care Mainframe Architect Name Role Phone Perla Golden Primary Care Provider [phone] Encounter Details Date Type Department Care Team (Latest Contact Info) Description 09/18/[address] [facility] CONVERSIONS Dental, Provider, DDS Social History Tobacco Use Types Packs/Day Years Used Date Smoking Tobacco: Never Assessed Sex and Gender Information Value Date Recorded Sex Assigned at Male 05/16/2022 10:17 AM EDT Legal Sex Male 10:17 AM EDT Gender Identity Male 05/16/2022 10:17 AM EDT Sexual Orientation Straight 05/16/2022 10 :17 AM EDT documented as of this encounter Plan of Treatment Upcoming Encounters Date Type Department Care Team (Late st Contact Info) Description 02/20/2025 9:00 AM EDT Office Visit [facility] MEDICINE [address] [place] [address] Perla Golden ANP [address] [place] [address] 03/07/2025 9:30 AM EDT Office Visit [facility] OPTOMETRY [address] [place] [address] Juarez, Celeste, OD [address] [place] [address] documented as of this encounter Visit Diagnoses Not on filedocumented in this encounter Care Teams Mainframe Architect Relationship Specialty Start Date End Date Perla Golden ANP [address] [place] [address] PCP - General Family Medicine 12/03/19 documented as of this encounter
== END 2024-12-24 11:31 | disposition home or self-care (01) ==
LOC: HO.HUSH 10:54
PROVIDERS: Visit Provider Urology
DX: N40.1 Benign prostatic hyperplasia with lower urinary tract symptoms (principal); R97.20 Elevated prostate specific antigen [PSA]; Z13.9 Encounter for screening, unspecified
CPT/HCPCS: 99213; G2211

== ENCOUNTER 2025-02-04 10:25 | Outpatient (REF) | payer MEDICARE, SELFPAY ==
--- NOTE | ~2025-02-04 | XR_ITS ---
EXAMINATION: XR HAND, RIGHT CLINICAL INFORMATION: swelling, arthritis? COMPARISON: None available. TECHNIQUE: PA, lateral, and oblique views of the right hand. FINDINGS: There is deformity of the third metacarpal head with marginal osteophytes and undulating subchondral bone plate. There is widening of the head. There is moderate asymmetric narrowing of the joint space, more so on the ulnar side. There are small marginal osteophytes involving the second DIP joint. No abnormalities are evident. 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 Electronically signed by: Mark Bowens MD 02/04/2025 12:07 PM EDT
--- NOTE | ~2025-02-04 | XR_ITS ---
EXAMINATION: XR LUMBOSACRAL SPINE CLINICAL INFORMATION: pain with extension COMPARISON: None available. TECHNIQUE: Three views of the lumbosacral spine. FINDINGS: There are 5 nonrib-bearing lumbar segments. Small anterior osteophytes are seen throughout the lumbar spine. There is no listhesis. L5-S1 demonstrates endplate sclerosis, nonmarginal osteophytes, and moderate loss disc height. There is also facet sclerosis. XR/XR lumbar spine 2-3V IMPRESSION: Moderate degenerative disc disease and facet arthropathy at L5-S1. Mild degenerative changes elsewhere. Electronically signed by: Mark Bowens MD 02/04/2025 12:08 PM EDT
--- OUTSIDE RECORDS SUMMARY | 2025-02-04 11:34 | XMS_ITS | Encounter Summary ---
Author Organization [employer] Address [address] 7[address] [place] [address] Care Team Providers Care Clerical Adjuster Name Role Phone Perla Golden Primary Care Provider [phone] Encounter Details Date Type Department Care Team (Late st Contact Info) Description 09/14/2023 Abstract [facility] MEDICINE [address] [place] [address] Cele Espino [place] Social History Tobacco Use [...] Description 02/20/2025 9:00 AM EDT Office Visit [facility] MEDICINE [address] [place], [place] [phone] Perla Golden ANP [address] [place], [place] [phone] 03/07/2025 9:30 AM EDT Office Visit [facility] OPTOMETRY [address], [place] [phone] JuarezCeleste smith, OD [address] [place] [address] documented as of this encounter Procedures Procedure [...] documented as of this encounter Care Teams Clerical Adjuster Relationship Specialty Start Date End Date Perla Golden ANP [address] [place], [place] [phone] PCP - General Family Medicine 12/03/19 documented as of this encounter
--- OUTSIDE RECORDS SUMMARY | 2025-02-04 11:34 | XMS_ITS | Patient Health Record ---
Author Organization [facility] Address [address] [place] [id number] Care Team Providers Care Technical Fellow Name Role Phone Mingo Brian Primary Care Provider Lew Leiva [phone] Reason For Referral No Information Medications Medication SIG (Take, Route, Frequency, Duration) Notes Start Date End Date Status Glucosamine prn Active Advil prn Active Vitamin B-12 1000 MCG TAKE 1 TABLET BY M OUTH EVERY DAY Oral for 30 Active buPROPion HCl ER (SR) 150 MG TAKE 1 TABLET BY MOUTH TWICE DAILY IN THE MORNING & AT BEDTIME Oral for 30 Active busPIRone HCl 15 MG TAKE 1 TABLET BY SACHI TH TWICE DAILY Oral for 30 Active Social History Tobacco Use: Social History Observation Description Date Details (start date - stop date) Former Smoker NA - NA Tobacco Use/Smoking Question Answer Notes Patient is a former smoker When did you stop smoking? 30 years ago How long has it been since you last smoked? > 10 years Alcohol Screen Question Answer Notes Did you have a drink contain ing alcohol in the past year? Yes How often did you have a dri nk containing alcohol in the past year? Monthly or less (1 point) How many drinks did you have on a typical day when you were drinking in the past year? 1 or 2 drinks (0 point) How often did you have 6 or more drinks on one occasion in the past year? Never (0 point) Points 1 Interpretation Negative Section Notes: Originally from [facility] Nonsmoker; no sig alcohol Problems Problem Type SNOMED Code ICD Code Onset Dates Problem Status W/U Status Risk Notes Problem [id number] Gastroesophageal reflux disease without esophagitis (K21.9) Active confirmed Problem [id number] Chronic gastriti s without bleeding, unspecified gastritis type (K29.50) Active confirmed Plan Of Treatment No Information Insurance Providers Payer Name Payer Address Payer Phone Subscriber Number Group Number Insured Name Patient Relationship to Insured Coverage Start Date Coverage End Date MEDICARE OF [place] [address] [place] DRIVER [id number] SYD MANUEL Self - patient is the insured MEDICAID OF [facility] [address] [place] [address] [id number] SYD MANUEL Self - patient is the insured Medical (General) History Medical History History ICD Code Denies RI,DM,CVA,Lung disease,renal dise ase Depression EGD in 2011--Dr. Robbins--Gastritis--inte stinal metaplasia, no H.pylori Colonoscopy in 2011---Dr. Quintana rris---negative--no polyps, no coilitis--biopsies WNL Surgical History Surgery Date(Month/Year) Right shoulder Left eye surgery
== END 2025-02-04 10:26 | disposition home or self-care (01) ==
LOC: HO.HHCX 10:25
PROVIDERS: PCP Nurse Practitioner Primary Care; Visit Provider General Practice
DX: R22.31 Localized swelling, mass and lump, right upper limb (principal); M54.50 Low back pain, unspecified
CPT/HCPCS: 36415; 72100; 73130; 85652; 86140

== ENCOUNTER → 2025-02-04 10:34 | Outpatient (BNV) | payer MEDICARE, SELFPAY | PROVIDERS: PCP Nurse Practitioner Primary Care; Visit Provider Radiology Diagnostic Radiology | DX: M47.816 Spondylosis without myelopathy or radiculopathy, lumbar region (principal); M19.041 Primary osteoarthritis, right hand | CPT/HCPCS: 72100; 73130 ==

== ENCOUNTER 2025-06-04 08:19 | Outpatient (REF) | payer MEDICARE, SELFPAY ==
[2025-06-04 08:31] LABS: MANUAL DIFF FLAG NO
[2025-06-04 09:05] LABS: Hematocrit 45.6 % (42.0-52.0); Hemoglobin 14.9 g/dl (14.0-18.0); Imm Gran Abs Auto 0.01 X10*3/uL (0.00-0.03); Imm Gran Pct Auto 0.2 % (0.0-0.4); Lymphocytes Absolute Auto 2.6 X10*3/uL (1.2-4.9); Mean Corpuscular HGB Conc 32.7 g/dl (31.0-36.0); Mean Corpuscular Hemoglobin 30.7 pg (27.0-33.0); Mean Corpuscular Volume 94.0 fL (80.0-98.0); NRBC Abs Auto 0.000 X10*3/uL (0.0-0.012); NRBC Pct Auto 0.0 /100WBC (0.0-0.2); Platelet Count 222 X10*3/uL (160-400); Red Blood Count 4.85 X10*6/uL (4.60-5.80); White Blood Count 5.2 X10*3/uL (4.8-10.8)
[2025-06-04 09:34] LABS: Cholesterol 229 mg/dL (<200); HDL Cholesterol 51 mg/dL (>40); Triglycerides 68 mg/dL (<150)
[2025-06-04 09:53] LABS: PSA,Total (Free>4and<10) 2.90 ng/mL (0.00-4.00)
[2025-06-04 09:58] LABS: Vitamin B12 359 pg/mL (200-900)
--- OUTSIDE RECORDS SUMMARY | 2025-06-04 15:59 | XMS_ITS | Encounter Summary ---
Author Organization [employer] [facility] Address [address] [place] [address] [address] [place] [address] Care Team Providers Care Police Booking Officer Name Role Phone Perla Golden Primary Care Provider [phone] Encounter Details Date Type Department Care Team (Latest Contact Info) Description 09/18/2020 Abstract [facility] CONVERSIONS Dental, Provider, DDS Social History Tobacco [...] Care Team (Late st Contact Info) Description 08/01/2025 9:15 AM EST Office Visit [facility] MEDICINE [address] [place] [address] Perla Golden ANP [address] [place] [address] documented as of this encounter Visit Diagnoses Not on filedocumented in this encounter Care Teams Police Booking Officer Relationship Specialty Start Date End Date Perla Golden ANP [address] [place] [address] PCP - General Family Medicine 12/03/19 documented as of this encounter
--- OUTSIDE RECORDS SUMMARY | 2025-06-04 15:59 | XMS_ITS | Encounter Summary ---
Author Organization [employer] Address [address] [facility] 7t [place] [address] Care Team Providers Care Hot Billet Shear Operator Name Role Phone Perla Golden Primary Care Provider [phone] Encounter Details Date Type Department Care Team (Late st Contact Info) Description 09/14/2023 Abstract [facility] MEDICINE [address] [place] [address] Cele Espino [place] Social History Tobacco Use [...] Description 08/01/2025 9:15 AM EST Office Visit [facility] MEDICINE [address] [place] [address] Perla Golden ANP [address] [place] [address] documented as of this encounter Procedures Procedure [...] documented as of this encounter Care Teams Hot Billet Shear Operator Relationship Specialty Start Date End Date Perla Golden ANP [address] [place] [address] PCP - General Family Medicine 12/03/19 documented as of this encounter
--- OUTSIDE RECORDS SUMMARY | 2025-06-04 15:59 | XMS_ITS | Patient Health Record ---
Author Organization [facility] Address [address] [place] [phone] Care Team Providers Care Report Clerk Name Role Phone Mingo Brian Primary Care Provider Lew Leiva [phone] Reason For Referral No Information Medications Medication SIG (Take, Route, Frequency, Duration) Notes Start Date End Date Status Glucosamine prn Active Advil prn Active Vitamin B-12 1000 MCG Tablet TAKE 1 TABLET BY MOUTH EVERY DAY Oral; Duration: 30 Active buPROPion HCl ER (SR) 150 MG Tablet Extended Release 12 Hour TAKE 1 TABLET BY MOUTH TWICE DAILY IN THE MORNING & AT BEDTIME Oral; Duration: 30 Active busPIRone HCl 15 MG Tablet TAKE 1 TABLET BY MOUTH TWICE DAILY Oral; Duration: 30 Active Social History Tobacco Use: Social History Observation Description Date Details (start date - stop date) Former Smoker NA - NA Social History Drugs/Alcohol: Social Info Question Answer Notes Alcohol Screen Did you have a drink containing alcohol in the past year? Yes How often did you have a drink containing alcohol in the past year? Monthly or less (1 point) How many drinks did you have on a typical day when you were drinking in the past year? 1 or 2 drinks (0 point) How often did you have 6 or more drinks on one occasion in the past year? Never (0 point) Points 1 Interpretation Negative Tobacco Use: Social Info Question Answer Notes Tobacco Use/Smoking Patient is a former smoker When did you stop smoking? 30 years ago How long has it been since you last smoked? > 10 years Additional Details Category Social Info Options Details Miscellaneous: Marital status: Occupation: Disabled Section Notes: Originally from [facility] Nonsmoker; no sig alcohol Problems Problem Type SNOMED Code ICD Code Onset Dates Problem Status W/U Status Risk Notes Problem Gastroesophageal reflux disease without esophagitis (499062241) Gastroesophageal reflux disease without esophagitis (K21.9) Active confirmed Problem Atrophic gastritis (88219504) Chronic gastritis without bleeding, unspecified gastritis type (K29.50) Active confirmed Plan Of Treatment No Information Insurance Providers Payer Name Payer Address Payer Phone Subscriber Number Group Number Insured Name Patient Relationship to Insured Coverage Start Date Coverage End Date MEDICARE OF [place] [address] [place]YCE DRIVER [id number] SYD MANUEL Self - patient is the insured MEDICAID OF [facility] [address] [place] [address] [phone] [id number] SYD MANUEL Self - patient is the insured Medical (General) History Medical History History ICD Code Denies VT,DM,CVA,Lung disease,renal dise ase Depression EGD in 2011--Dr. Robbins--Gastritis--inte stinal metaplasia, no H.pylori Colonoscopy in 2011---Dr. Quintana rris---negative--no polyps, no coilitis--biopsies WNL Surgical History Surgery Date(Month/Year) Right shoulder Left eye surgery
--- OUTSIDE RECORDS SUMMARY | 2025-06-04 16:00 | XMS_ITS | Clinical Summary ---
Author Organization [employer] Address [address] [facility] 7t [place] [address] Care Team Providers Care Engineering Agent Name Role Phone Perla Golden Primary Care Provider [phone] Allergies No known active allergies Medications * This document contains information received from the source organization and may not represent a complete record from that organization. cyanocobalamin (Vitamin B-12) 1000 MCG tablet Take 1 tablet by mouth Once per day. OTC gummy 2 Active finasteride (Proscar) 5 MG tabletIndication s:Benign prostatic hyperplasia with nocturia Take 1 tablet (5 mg) by mouth Once per day. 90 tablet 1 5 Active hydrocortisone (Anusol-HC) 2.5 % rectal creamIndications :Anal skin tag Insert as directed twice daily for up to 7 days if needed for hemorrhoids/elvia irritation 28 g 5 Active buPROPion XL (Wellbutrin XL) 150 MG 24 hr tabletIndication s:Depressive disorder Take 1 tablet (150 mg) by mouth Once per day. Do not crush, chew, or split. 90 tablet 3 5 Active methocarbamol (Robaxin) 750 MG tabletIndication s:Chronic midline low back pain without sciatica TAKE 1 TABLET BY MOUTH UP TO THREE TIMES DAILY NEEDED FOR BACK PAIN 40 tablet 5 Active Active Problems Problem Noted Date Diagnosed Date Moderate depressive disorder 06/29/2023 Assessment & Plan (04/16/2025 12:54 PM EDT): During IBH Consult Ángel presenting with depressed mood, Tearful, crying spells , hopelessness, isolating, changes in sleep difficulty falling asleep and difficulty staying asleep , fatigue/loss of energy, worthlessness, inappropriate/excessive guilt , difficulty concentrating; for a period of 0-6 mo, for most or all symptoms in the context of financial concern and marriage. Pt with sxs described as baseline and feeling emotional distressed. Marital problems and communication issues are triggers identified as triggers for his depression. Pt feels stuck and states not having motivation and lack of purpose. Pt denied SI thoughts. clinician normalized and validated patient's emotions while providing compassionate listening. Explored doing activities that he used to enjoy in the past (fixing his motorcycle and taking walks) as part of setting goals. Assessment & Plan (10/18/2024 12:00 PM EDT): [...] of sxs. Pt will be traveling to [facility] (where he's originally from) to distract himself. Ángel is concerned for his marriage and unsure about the future and how that would be for his marriage. clinician engaged patient with active/reflective listening. Reviewed and assessed for risk, current stressors and protective factors using open-ended questions. Provided grief counseling and therapeutic approach through session. Pt will seek out for additional support from the [facility] team when he comes back from [facility] (in two months). Assessment & Plan (07/04/2023 [...] Health Integration Plan Internal Follow up with [facility], Patient Self Plan Patient to utilize skills provided in intervention , Patient to reach out to [facility] team as needed, Comply with [...] Health Integration Plan Internal Follow up with [facility], External OP therapy referral , Patient Self Plan Patient to utilize skills provided in intervention , Patient [facility] team as needed, Comply with medication , [...] was back in September I asked our [facility] clinician to meet with patient to re [...] of sxs. Pt will be traveling to [facility] (where he's originally from) to distract himself. Ángel is concerned for his marriage and unsure about the future and how that would be for his marriage. clinician engaged patient with active/reflective listening. Reviewed and assessed for risk, current stressors and protective factors using open-ended questions. Provided grief counseling and therapeutic approach through session. Pt will seek out for additional support from the [facility] team when he comes back from [facility] (in two months). Assessment & Plan (07/04/2023 [...] Health Integration Plan Internal Follow up with [facility], Patient Self Plan Patient to utilize skills provided in intervention , Patient to reach out to [facility] team as needed, Comply with [...] Health Integration Plan Internal Follow up with [facility], External OP BH therapy referral , Patient Self Plan Patient to utilize skills provided in intervention , Patient to reach out to [facility] team as needed, Comply with [...] 3 yr ago Cholesterol, Total <200 mg/dL 214 High 205 High 187 189 HDL Cholesterol > OR = 40 mg/dL 55 53 55 50 Triglycerides <150 mg/dL 66 81 54 54 LDL Cholesterol mg/dL (calc) 143 High 134 High CM 117 High CM 124 High CM Comment: Reference range: <100 Desirable range <100 mg/dL for primary prevention; <70 mg/dL for patients with CHD or diabetic patients with > or = 2 CHD risk factors. LDL-C is now calculated using the Marko calculation, which is a validated novel method providing better accuracy than the Friedewald equation in the estimation of LDL-C. Lazaro ABDUL et al. OPAL. 2013;310(19): 7384-3274 (http://education.uMix.TV.Compute/faq/EDT191) Chol/HDLC Ratio <5.0 (calc) 3.9 3.9 3.4 3.8 Non-HDL Cholesterol <130 mg/dL (calc) 159 High 152 High CM 132 High CM 139 High CM Anxiety 09/10/2012 Irritable bowel syndrome 09/10/2012 Encounters * This document contains information received from the source organization and may not represent a complete record from that organization. Date Type Department Care Team Description 06/04/2025 Orders Only GENERIC EXTERNAL DATA DEPARTMENT Provider, Generic External Data 05/09/[address] [address] Perla Golden ANP june04/24/[address] [address] Perla Golden ANP Chronic midline low back pain without sciatica 04/15/2025 1:15 PM EDT Office Visit [address] [address] Perla Golden ANP Chronic midline low back pain without sciatica (Primary Dx); Depressive disorder; Cobalamin deficiency; Mixed hyperlipidemia; Encounter for immunization 04/15/2025 Travel 04/14/[address] [address] Perla Golden ANP chart prep 04/07/2025 Patient Outreach [address] [address] Perla Golden ANP Pre-visit Planning (SDOH screening was completed on 10/08/2024) 03/10/2025 Orders Only [facility] MEDICINE [address] [place] [address] Liliana Guevara MD Chronic bilateral low back pain, unspecified whether sciatica present (Primary Dx) 03/07/2025 3:30 PM EDT Office Visit [facility] OPTOMETRY [address] [place] [address] Juarez, Celeste, OD Amblyopia, right eye (Primary Dx); Nuclear senile cataract of both eyes; Presbyopia of both eyes 03/07/2025 Travel 03/04/2025 Telephone [facility] MEDICINE [address] [place] [address] Perla Golden ANP telephone call from Last 3 Months Immunizations Immunization Administration Dates Next Due Hep B, Adolescent or Pediatric 06/05/2006,2005,10/05/2005 Influenza, Split (incl. anahy fied surface antigen) 04/06/2012 Influenza, seasonal, injecta ble, preservative free 04/15/2025 MMR 11/03/2005 Moderna Covid-19 Vaccine 6+ Bivalent [...] Answer Date Recorded Patient Health Questionnaire-9 Score 11 04/15/2025 Patient Health Questionnaire-9 Score 11 04/15/2025 Last PHQ-9: Questionnaire Data Not on file 0 04/15/2025 Housing Stability Answer Date Recorded What is your housing situation today? I have geno sing 10/08/[address] you li [...] Date Recorded Patient Health Questionnaire-2 Score 4 04/15/2025 Internet Access Answer Date Recorded Internet Access [...] Sign Reading Time Taken Comments Blood Pressure 120/80 04/15/2025 1:17 PM EDT Pulse 61 04/15/2025 1:17 PM EDT Temperature 36.4 C (97.6 F) 04/15/2025 1:17 PM EDT Respiratory Rate 20 04/15/2025 1:17 PM EDT Oxygen Saturation 98% 04/15/2025 1:17 PM EDT Inhaled Oxygen Concentration - - Weight 68.5 kg (151 lb) 04/15/2025 1:17 PM EDT Height 165.1 cm (5' 5 ) 04/15/2025 1:17 PM EDT Body Mass Index 25.13 04/15/2025 1:17 PM EDT Plan of Treatment Upcoming Encounters Date Type Department Care Team (Late st Contact Info) Description 08/01/2025 9:15 AM EST Office Visit [facility] MEDICINE [address] [place] [address] Perla Golden ANP [address] [place] [address] Health Maintenance Due Date Last Done Comments CT Colonography 1962 FIT DNA/Cologuard 1962 FIT 1962 FOBT 1962 Sigmoidoscopy 1962 Disability Screening 1962 COVID-19 Vaccine ( season) 2025 08/04/2022, 09/02/2021, 12/02/2020, Additional history exists Alcohol/Substance Use Screening 06/20/2025 06/20/2024 SDOH Screening 10/08/2025 10/08/2024 Depression Monitoring 10/13/2025 04/15/2025, 025 Tobacco Screening 04/15/2026 04/15/2025 DTaP/Tdap/Td Vaccines (2 - Td or Tdap) 04/01/2030 04/01/2020, 02/20/2018, 10/05/2005 Lipid Panel 06/04/2030 06/04/2025, 04/0 02/2025, 03/20/2024, Additional history exists Colonoscopy 09/12/2033 09/12/2023 Colorectal Cancer Screening 09/12/2033 RSV Patients and Patients Aged 60 years or older (1 - 1-dose 75+ series) 2037 Hepatitis B Vaccines Aged Out 06/05/2006, 11/10/2005, 10/05/2005 No longer eligible based on patient's age to complete this topic Zoster Vaccines Completed 10/26/2023, 07/25/2023 Pneumococcal Vaccine: 50+ Years Completed 06/20/2024 HIV Screening Completed 10/18/2024, 07/28/2021 Hepatitis C Screening Completed 10/18/2024 Influenza Vaccine Completed 04/15/2025, 04/06/2012 HIB Vaccines Aged Out No longer eligi [...] patient's age to complete this topic Meningococcal B Vaccine Aged Out No l onger eligible based on patient's age to complete [...] Procedure Name Priority Date/Time Associated Diagnosis Comments PSA, TOTAL WITH REFLEX TO PSA, FREE Routine 06/04/2025 8:30 AM EST CBC WITH AUTO DIFFERENTIAL Routine 06/04/2025 8:30 AM EST Cobalamin deficiency VITAMIN B12 Routine 06/04/2025 8:30 AM EST Cobalamin deficiency LIPID PANEL, STANDARD Routine 06/04/2025 8:30 AM EST Mixed hyperlipidemia HEPATITIS C ANTIBODY ([place] [facility]) Routine 10/18/2024 HIV ANTIBODY/ANTIGEN ([place] [facility]) Routine 10/18/2024 HM COLONOSCOPY Routine 09/12/2023 from Last 3 Months or Most Recently Relevant to Health Maintenance Results * PSA, Total With Reflex to PSA, Free (06/04/2025 8:30 AM EST) PSA,Total (Free>4and<10) 2.90 0.00 - 4.00 ng/mL [facility] Comment:A Free PSA was not p erformed: The percentage of Free PSA can be used to enhance the differentiation of prostate cancer from benign prostatic disease in subjects whose PSA levels are between 4.0 and 10.0 ng/mL. For subjects whose PSA levels are below 4.0 or above 10.0 ng/mL, the risk of prostate cancer is determined on the basis of the PSA alone. Therefore the % Free PSA is recommended only for those subjects whose PSA levels are between 4.0 and 10.0 ng/mL.PSA methodology: [employer] Al[employer] i ChemiluminescentMicroparticle Immunoassay (CMIA) 06/04/2025 8:30 AM EST 06/04/2025 8:30 AM EST us Generic External Data Provider LAB BLOOD ORDERAB LES Final Result [facility] [address] [place], [place] [phone] * (ABNORMAL) CBC auto differential (06/04/2025 8:30 AM EST) White Blood Count 5.2 4.8 - 10.8 X10*3/uL [facility] Red Blood Count 4.85 4.60 - 5.80 X10*6/uL [facility] Hemoglobin 14.9 14.0 - 18.0 g/dl [facility] Hematocrit 45.6 42.0 - 52.0 % [facility] Mean Corpuscular Volume 94.0 80.0 - 98.0 fL [facility] Mean Corpuscular Hemoglobin 30.7 27.0 - 33.0 pg [facility] Mean Corpuscular HGB Conc 32.7 31.0 - 36.0 g/dl [facility] Red Cell Distribution Width 12.4 11.0 - 16.0 % [facility] Platelet Count 222 160 - 400 X10*3/uL [facility] Mean Platelet Volume 9.5 9.4 - 12.4 fL [facility] Neutrophils Percent Auto 35.3(L) 45 - 73 % [facility] Imm Gran Pct Auto 0.2 0.0 - 0.4 % [facility] Lymphocytes Percent Auto 49.7(H) 20 - 40 % [facility] Monocytes Percent Auto 9.6 2 - 11 % [facility] Eosinophils Percent Auto 4.2(H) 0 - 4 % [facility] Basophils Percent Auto 1.0 0 - 2 % [facility] NRBC Pct Auto 0.0 0.0 - 0.2 /100WBC [facility] Neutrophils Absolute Auto 1.8(L) 2.0 - 8.3 x10*3/uL [facility] Imm Gran Abs Auto 0.01 0.00 - 0.03 X10*3/uL [facility] Lymphocytes Absolute Auto 2.6 1.2 - 4.9 X10*3/uL [facility] Monocytes Absolute Auto 0.5 0.1 - 1.2 X10*3/uL [facility] Eosinophils Absolute Auto 0.2 0.0 - 0.4 X10*3/uL [facility] Basophils Absolute Auto 0.1 0.0 - 0.2 X10*3/uL [facility] NRBC Abs Auto 0.000 0.0 - 0.012 X10*3/uL [facility] Blood Venous blood specimen / Unknown 06/04/2025 8:30 AM EST 06/04/2025 8:30 AM EST Perla Golden [facility] LAB BLOOD ORDERABLES Final Resul t Performing Organization Address City/[facility] Co de Phone Number [facility] [address] [place] [phone] * Vitamin B12 (06/04/2025 8:30 AM EST) Pathologist [facility] Vitamin B12 359 200 - 900 pg/mL [facility] Comment:NORMAL 200-900 PG/ML INDETERMINATE 160-199 PG/ML DEFICIENT < 160 PG/ML Blood Venous blood specimen / Unknown 06/04/2025 8:30 AM EST 06/04/2025 8:30 AM EST Perla Golden [facility] LAB BLOOD ORDERABLES Final Resul t Performing Organization Address City/[facility] Co de Phone Number [facility] [address] [place] [phone] * (ABNORMAL) Lipid Panel, Standard (06/04/2025 8:30 AM EST) Triglycerides 68 <150 mg/dL [facility] Comment:Desirable Triglyceri de: less than 150 mg/dLBorderline High Triglyceride 150-199 mg/dLHigh Triglyceride: 200-499 mg/dLVery High Triglyceride: greater than or equal to 5OO mg/dL Cholesterol 229(H) <200 mg/dL [facility] Comment:Desirable Cholestero l: less than 200 mg/dLBorderline High Cholesterol: 200-239 mg/dLHigh Cholesterol: greater than 239 mg/dL LDL Cholesterol Calculated 165(H) <100 mg/dL [facility] Comment:Desirable LDL: less than 100 mg/dLNear Optimal/Above Optimal LDL: 110- 129 mg/dLBorderline High LDL: 130-159 mg/dLHigh LDL: 160-189 mg/dLVery High LDL: greater than or equal to 190 mg/dL HDL Cholesterol 51 >40 mg/dL [facility] Comment:Desirable HDL: great er than 40 mg/dL Note: This HDL assay may give artificially low results in patients with liver disease. Blood Venous blood specimen / Unknown 06/04/2025 8:30 AM EST 06/04/2025 8:30 AM EST [facility] LAB BLOOD ORDERABLES Final Resul t [facility] [address] [place] [phone] * Hepatitis C Antibody ([facility]) (10/18/2024) Hepatitis C Ab Nonreactive Blood 10/18/2024 [facility] Provider LAB BLOOD ORDERABLES Abigail l Result * HIV Ab/Ag ([facility]) (10/18/2024) HIV Ag/Ab Nonreactive Blood 10/18/2024 [facility] LAB BLOOD ORDERABLES Abigail l Result * Hm Colonoscopy (09/12/2023) Colonoscopy Normal Normal, BIRADS 0 , BIRADS 1 , BIRADS 2, BIRADS 3 , BIRADS 4+ us Historical Provider HEALTH MAINTENANCE Final Result from Last 3 Months or Most Recently Relevant to Health Maintenance Insurance [facility] MEDICARE ADVANTAGE HMO Care Teams Engineering Agent Relationship Specialty Start Date End Date Perla Golden ANP [address] [place] [phone] PCP - General Family Medicine 12/03/19
--- OUTSIDE RECORDS SUMMARY | 2025-06-04 16:00 | XMS_ITS | Encounter Summary ---
Author Organization [employer] Address [address] [facility] [address] [place] [address] Care Team Providers Care Steam Plant Operator Name Role Phone Perla Golden Primary Care Provider [phone] Encounter Details Date Type Department Care Team ([facility] Contact Info) Description 06/04/2025 Orders Only GENERIC EXTERNAL DATA DEPARTMENT Provider, Generic External Data Social History Tobacco Use Types Packs/Day Years [...] Description 08/01/2025 9:15 AM EST Office Visit [facility] MEDICINE [address] [place], [place] [phone] Perla Golden ANP [address] [place], [place] [phone] documented as of this encounter Procedures Procedure Name Priority Date/Time Associated Diagnosis Comments PSA, TOTAL WITH REFLEX TO PSA, FREE Routine 06/04/2025 8:30 AM EST documented in this encounter Results * PSA, Total With Reflex to PSA, Free (06/04/2025 8:30 AM EST) PSA,Total (Free>4and<10) 2.90 0.00 - 4.00 ng/mL [facility] Comment:A Free PSA was not p [...] are between 4.0 and 10.0 ng/mL.PSA methodology: [employer] Alinity i ChemiluminescentMicroparticle Immunoassay (CMIA) 06/04/2025 8:30 AM EST 06/04/2025 8:30 AM EST us Generic External Data Provider LAB BLOOD ORDERAB LES Final Result [facility] [address] [place] [phone] [phone] documented in this encounter Visit Diagnoses Not on filedocumented in this encounter Additional Health Concerns Assessment Noted Time PHQ-9 Depression Total Score: 11 025 2:30 PM EDT documented as of this encounter Care Teams Steam Plant Operator Relationship Specialty Start Date End Date Perla Golden ANP [address] [place] [address] PCP - General Family Medicine 12/03/19 documented as of this encounter
--- OUTSIDE RECORDS SUMMARY | 2025-06-04 16:00 | XMS_ITS | Encounter Summary ---
Author Organization [employer] Address [address] [place] [address] Care Team Providers Care Water Team Leader Name Role Phone Perla Golden Primary Care Provider [phone] Reason for Referral * Consultation (Routine) - Closed Specialty Diagnoses / Procedures Referred By Danielle dooley Referred To Contact Physical Therapy Diagnoses Chronic bilateral low back pain, unspecified whether sciatica present Liliana Guevara MD [address] [place] [id number] Phone: tel: fax: AT Physical Therapy [address] [address] Phone: tel: fax: Referral ID Status Reason Start Date Expiration Date V isits Requested Visits Authorized [id number] Closed Specialty Services Required 03/10/2025 03/10/2026 1 1 Encounter Details Date Type Department Care Team (Late st Contact Info) Description 03/10/2025 Orders Only [facility] [address] [place] [address] Liliana Guevara MD [address] [place] [address] Chronic bilateral low back pain, unspecified whether sciatica present (Primary Dx) Social History Tobacco Use Types Packs/Day Years [...] Description 08/01/2025 9:15 AM EST Office Visit [facility] [address] [place] [address] Perla Golden ANP [address] [place] [address] Scheduled Referrals Name Type Priority Associated Diagnoses Orde r Schedule Referral to Physical Therapy Outpatient Referral Routine Chronic bilateral low back pain, unspecified whether sciatica present Expected: 03/10/2025 (Approximate), Expires: 03/10/2026 documented as of this encounter Visit Diagnoses Diagnosis Chronic bilateral low back pain, unspecified whether sciatica present- Primary documented in this encounter Additional Health Concerns Assessment Noted Time PHQ-9 Depression Total Score: 17 10/18/ 025 9:41 AM EDT documented as of this encounter Care Teams Water Team Leader Relationship Specialty Start Date End Date Perla Golden ANP [address] [place] [id number] PCP - General Family Medicine 12/03/19 documented as of this encounter
--- OUTSIDE RECORDS SUMMARY | 2025-06-04 16:00 | XMS_ITS | Encounter Summary ---
Author Organization [employer] Address [address] [facility] [address] [place] [address] Care Team Providers Care Facility Manager Histology Name Role Phone Perla Golden Primary Care Provider [phone] Reason for Visit * Reason Comments Med Refill Encounter Details Date Type Department Care Team ([facility] st Contact Info) Description 09/25/2024 Refill [facility] [address] [place], [place] [phone] Perla Golden ANP [address] [place] [address] Mixed hyperlipidemia Social History Tobacco Use Types [...] Description 08/01/2025 9:15 AM EST Office Visit [facility] [address] [place] [address] Perla Golden ANP [address] [place] [address] documented as of this encounter Visit Diagnoses Diagnosis Mixed hyperlipidemia documented in this encounter Additional Health Concerns Assessment Noted Time PHQ-9 Depression Total Score: 14 024 9:38 AM EST documented as of this encounter Care Teams Facility Manager Histology Relationship Specialty Start Date End Date Perla Golden ANP [address] [place] [id number] PCP - General Family Medicine 12/03/19 documented as of this encounter
== END 2025-06-04 08:20 | disposition home or self-care (01) ==
LOC: HO.LAB 08:19
PROVIDERS: Absent Provider Urology; PCP Nurse Practitioner Primary Care; Visit Provider Nurse Practitioner Primary Care
DX: Z12.5 Encounter for screening for malignant neoplasm of prostate (principal); R97.20 Elevated prostate specific antigen [PSA]; E78.2 Mixed hyperlipidemia; E53.8 Deficiency of other specified B group vitamins
CPT/HCPCS: 36415; 80061; 82607; 84153; 85025

== ENCOUNTER 2025-06-25 09:46 | Outpatient (AMB) | payer MEDICARE, SELFPAY ==
--- NOTE | 2025-06-25 10:16 | A.OFFVIS_ITS ---
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 He is seen for the following urologic conditions - lower urinary tract symptoms - urinary retention Irish translation provided in office by qualified family practice medical doctor Six-month follow-up PSA significant drop 2.9 May use finasteride Monday, Monday, and Monday 12 month follow-up repeat PSA Lower urinary tract symptoms Predominantly obstructive Had responded well to tamsulosin in the past but stopped this himself Secondary to side effects of retrograde ejaculation Current therapy cyclic finasteride Family history prostate cancer PSA - 03/06 10, 05/06 3.5, 10/05 3.8, 04/07 3.1, 08/08 2.8, 01/08 6.1 28%, 06/10 2.9 Bladder US 08/08 - 30gm Prior PSA in the 4-5 range. Biopsy performed 2008 negative and 2018 12 month follow-up [facility] Medical History Cobalamin deficiency Hyperlipidemia Irritable bowel syndrome, unspecified Arthritis Depression Back pain Bacteremia Elevated prostate specific antigen [PSA] Urge incontinence Benign prostatic hyperplasia with lower urinary tract symptoms Surgical History S/P LASIK surgery H/O colonoscopy H/O prostate biopsy H/O shoulder surgery Family History Mother Esophagus cancer Sister Breast cancer Social History Alcohol intake: current Alcohol intake frequency: holidays/special occasions only Patient Tobacco Use Status: Former Tobacco user Current occupational status: disabled Current occupation: rt hand Review of Systems Const Denies chills and Denies fever(s) Card Reports no additional complaints and Denies syncope Resp Denies cough GI Denies abdominal pain and Denies heartburn Reports as per HPI and Denies change in libido Neuro Denies syncope Psych Denies change in libido Endo Denies change in libido Physical Exam Const General: cooperative, healthy appearing, comfortable and no acute distress Orientation/consciousness: patient oriented x3 HEENT Face and sinus: Yes normal facial exam Mouth: moist mucous membranes Neck Neck: Yes normal visual inspection, Yes full ROM and Yes trachea midline Chest Chest palpation & inspection: normal inspection of the chest Resp Effort & Inspection: normal respiratory effort, able to speak in complete sentences and no respiratory distress GI Inspection: Yes normal to inspection Back/Spine/Pelvis Cervical Spine: normal cervical lordosis Thoracic/Lumbar Spine: thoracic and lumbar spine normal to inspection Skin General skin exam: no rashes or lesions noted Neuro General: patient oriented x3, gait normal, tone normal and moves all extremities Extrem General: Yes normal to inspection and Yes capillary refill normal Office Procedures Post Void Residual Post Residual Void Post Void Residual (PVR): 65 [id number] Void Residual by ultrasound Assessment & Plan Assessment & Plan (1) Elevated prostate specific antigen [PSA]: Code(s): R97.20 - Elevated prostate specific antigen [PSA] Category: Medical (2) Nocturia more than twice per night: Code(s): R35.1 - Nocturia Category: Medical Plan Twelve month follow-up PSA Orders: Orders AMB Post Void Residual by ultrasound Today N40.1 - Benign prostatic hyperplasia with lower urinary tract symptoms Prostate Specific Antigen 12 Months R97.20 - Elevated prostate specific antigen [PSA] Patient Instructions: This note is constructed using voice recognition software. While every effort has been made to ensure accuracy enlisted advisor errors may have been included. Imaging studies, laboratory and physical exam results were discussed and reviewed in detail. No major barriers to patient understanding were identified. An opportunity to ask questions regarding the treatment plan was provided. All questions were answered. The patient expressed understanding and agreement with the above treatment plan. The patient is aware they should contact our office by phone for worsening of their current condition or the appearance of new urologic symptoms. Compliance is encouraged with any medications and followup testing that is ordered. It is a privilege to participate in the urologic care of your patient. If you have any questions or concerns regarding treatment for the above conditions, or other urologic issues, please do not hesitate to contact me. The office telephone contact is [phone]. Sincerely, Dr Micheal Park MD, [facility] - Urology Compassionate Specialist Care for the Genitourinary System Coding Level of Care Code Est Pt Level 3 (27751) Diagnoses Elevated prostate specific antigen [PSA] R97.20 Nocturia more than twice per night R35.1 CPT Codes Post Residual Void - PVR CPT Code: 87442-Xaag Void Residual by ultrasound ([id number])
== END 2025-06-25 10:56 | disposition home or self-care (01) ==
LOC: HO.HUSH 09:47
PROVIDERS: PCP Nurse Practitioner Primary Care; Visit Provider Urology
DX: R97.20 Elevated prostate specific antigen [PSA] (principal); R35.1 Nocturia
CPT/HCPCS: 99213

== ENCOUNTER → 2025-06-25 09:46 | Outpatient (BNVA) | payer MEDICARE, SELFPAY | PROVIDERS: PCP Nurse Practitioner Primary Care; Visit Provider Urology | DX: R35.1 Nocturia (principal); R97.20 Elevated prostate specific antigen [PSA]; N40.1 Benign prostatic hyperplasia with lower urinary tract symptoms | CPT/HCPCS: 51798; 99212 ==